=== PATIENT | female | born 1965 | race Caucasian/White ===

== ENCOUNTER 2016-05-27 03:05 | Emergency (ER) | payer SELFPAY ==
[~2016-05-27] VITALS: Ht 162.5 cm; Wt 63.5 kg
[~2016-05-27 03:05] MED LIST: ACE INH; ATIVAN1 MG PO; AVPAK AZITHROM250 M1 PO; BENADRYL ALLERG25 M5 PO; CIPRO500 MG PO; CLARITIN-D 10 M1 T21 PO; CLEOCIN150 MG PO; CLINDAMYCIN HC300 MG PO; CLINDAMYCIN150 MG PO; CORDROL20 MG PO; CYCLOBENZAPRINE10 MG PO; CYCLOBENZAPRINE5 MG PO; DIFLUCAN150 MG PO; DOXYCYCLINE100 M3 PO; DUONEB 3 MG/3 ML3 M1 INH; EES400 MG PO; ERYTHROMYCIN; FLEXERIL10 MG PO; GABAPENTIN600 MG PO; HYDROCODONE BIT1 T11 PO; HYDROXYZINE HCL25 M1 PO; IBU800 M1 PO; KROGER NIC21 MG/24 H TD; L-LYSINE500 MG PO; LOMOTIL 0.025 M1 TA1 PO; LORAZEPAM1 MG PO; MEDROL DOSEPAK4 MG PO; MEDROL4 MG PO; MOTRIN800 MG PO; NAPROSYN500 MG PO; NAPROXEN; NATURE'S BLEND400 I1 PO; NEURONTIN300 MG PO; NO DAILY MEDS; NORCO 325 MG-51 TAB PO; NORFLEX100 MG PO; PEPCID20 MG PO; PERCOCET 325 MG1 TA6 PO; PHENERGAN W/ DE30 ML PO; PREDNICOT10 MG PO; PREDNICOT20 MG PO; PREDNISONE10 MG PO; PREDNISONE20 M1 PO; PROAIR HFA0.09 MG/AC IH; PROAIR HFA0.09 MG/AC INH; PROAIR HFA8.5 GM INH; ROBAXIN750 MG PO; SKELAXIN800 MG PO; TRAMADOL HCL50 MG PO; TYLENOL W/CODEI1 TA4 PO; ULTRAM50 MG PO; VIBRAMYCIN100 MG PO; VICODIN 5/500 505 M1; VICODIN 5/500 505 MG PO; VICODIN 500 MG-1 TAB PO; VICODIN ES 7501 TAB PO; VISTARIL50 MG PO; VOLTAREN50 M1 PO; ZITHROMAX Z PA250 MG PO; ZOFRAN ODT4 MG SL; ZOVIRAX800 MG PO; [UNRECOGNIZED DRUG - OTHER] INH; [UNRECOGNIZED DRUG - OTHER] PO; [UNRECOGNIZED DRUG - OTHER] T
[2016-05-27] MEDS ORDERED: CLINDAMYCIN150 MG PO (03:33)
[2016-05-27] MEDS ORDERED: ATIVAN1 MG PO (03:33)
[2016-05-27] MEDS ORDERED: ULTRAM50 MG PO (03:33)
[2016-06-22] MEDS ORDERED: CLINDAMYCIN HC300 MG PO (14:36)
[2016-06-22] MEDS ORDERED: ATIVAN1 MG PO (14:36)
== END 2016-05-27 03:52 | disposition home or self-care (01) ==
LOC: ED 03:05
DX: T20.45XA Corrosion of unspecified degree of scalp [any part], initial encounter (principal); F41.9 Anxiety disorder, unspecified; F17.200 Nicotine dependence, unspecified, uncomplicated; Z88.0 Allergy status to penicillin; Z88.2 Allergy status to sulfonamides; Z91.040 Latex allergy status; X08.8XXA Exposure to other specified smoke, fire and flames, initial encounter; Y93.89 Activity, other specified; Y92.9 Unspecified place or not applicable; Y99.9 Unspecified external cause status

== ENCOUNTER 2016-08-16 14:33 | Emergency (ER) | payer MEDICAID ==
[~2016-08-16] VITALS: Wt 70.3 kg
[2016-08-16] MEDS ORDERED: HYDROCODONE BIT1 T11 PO (15:35)
[2016-08-16] MEDS ORDERED: CLINDAMYCIN HC300 MG PO (15:35)
== END 2016-08-16 15:39 | disposition home or self-care (01) ==
LOC: ED 14:33
DX: L02.811 Cutaneous abscess of head [any part, except face] (principal); F17.200 Nicotine dependence, unspecified, uncomplicated; Z88.0 Allergy status to penicillin; Z88.2 Allergy status to sulfonamides; Z91.040 Latex allergy status; Z79.899 Other long term (current) drug therapy

== ENCOUNTER 2016-09-12 22:21 | Emergency (ER) | payer OTHER ==
[~2016-09-12] VITALS: Ht 162.5 cm; Wt 59.0 kg
[2016-09-12] MEDS ORDERED: CETIRIZINE10 MG PO (22:36)
[2016-09-12] MEDS ORDERED: VALIUM2 MG PO (22:36)
[2016-09-12] MEDS ORDERED: CLINDAMYCIN HC300 MG PO (22:52)
== END 2016-09-12 22:52 | disposition home or self-care (01) ==
LOC: ED 22:21
DX: L23.4 Allergic contact dermatitis due to dyes (principal); F17.200 Nicotine dependence, unspecified, uncomplicated; Z88.0 Allergy status to penicillin; Z88.2 Allergy status to sulfonamides; Z91.040 Latex allergy status

== ENCOUNTER 2016-09-18 20:41 | Emergency (ER) | payer OTHER ==
[~2016-09-18] VITALS: Ht 162.5 cm; Wt 63.0 kg
[~2016-09-18 20:41] MED LIST changes: +CETIRIZINE10 MG PO; +VALIUM2 MG PO
[2016-09-18] MEDS ORDERED: LORAZEPAM1 MG PO (20:52)
[2016-09-18] MEDS ORDERED: PREDNISONE50 MG PO (21:23)
== END 2016-09-18 21:31 | disposition home or self-care (01) ==
LOC: ED 20:41
DX: L20.9 Atopic dermatitis, unspecified (principal); F41.9 Anxiety disorder, unspecified; F17.200 Nicotine dependence, unspecified, uncomplicated; Z88.0 Allergy status to penicillin; Z88.2 Allergy status to sulfonamides; Z91.040 Latex allergy status; Z79.899 Other long term (current) drug therapy

== ENCOUNTER 2016-09-28 21:15 | Emergency (ER) | payer SELFPAY ==
[~2016-09-28] VITALS: Ht 162.5 cm; Wt 72.1 kg
[~2016-09-28 21:15] MED LIST changes: +PREDNISONE50 MG PO
[2016-09-28] MEDS ORDERED: BENADRYL ALLERG25 M5 PO (21:30)
[2016-09-28] MEDS ORDERED: TAGAMET HB200 M1 PO ×2 (21:59→22:00)
[2016-09-28] MEDS ORDERED: TRIAMCINOLONE AC0.1% T (22:00)
== END 2016-09-28 22:01 | disposition home or self-care (01) ==
LOC: ED 21:15
DX: L23.7 Allergic contact dermatitis due to plants, except food (principal); F17.200 Nicotine dependence, unspecified, uncomplicated; Z88.0 Allergy status to penicillin; Z88.2 Allergy status to sulfonamides; Z91.040 Latex allergy status

== ENCOUNTER 2016-10-12 13:58 | Emergency (ER) | payer SELFPAY ==
[~2016-10-12] VITALS: Ht 162.5 cm; Wt 63.0 kg
[~2016-10-12 13:58] MED LIST changes: +TAGAMET HB200 M1 PO; +TRIAMCINOLONE AC0.1% T
[2016-10-12] MEDS ORDERED: DUONEB 3 MG/3 ML3 M1 INH (16:33)
[2016-10-12] MEDS ORDERED: PREDNISONE20 M1 PO (16:33)
[2016-10-12] MEDS ORDERED: VIBRAMYCIN100 MG PO (16:33)
== END 2016-10-12 16:54 | disposition home or self-care (01) ==
LOC: ED 13:58
DX: J44.1 Chronic obstructive pulmonary disease with (acute) exacerbation (principal); F17.200 Nicotine dependence, unspecified, uncomplicated; Z88.0 Allergy status to penicillin; Z88.2 Allergy status to sulfonamides; Z91.040 Latex allergy status; Z79.899 Other long term (current) drug therapy

== ENCOUNTER 2016-11-05 21:07 | Emergency (ER) | payer OTHER ==
[~2016-11-05] VITALS: Ht 162.5 cm; Wt 68.0 kg
[2016-11-05] MEDS ORDERED: VIBRAMYCIN100 MG PO (21:57)
[2016-11-05] MEDS ORDERED: NAPROSYN500 MG PO (21:58)
== END 2016-11-05 22:41 | disposition home or self-care (01) ==
LOC: ED 21:07
DX: L03.114 Cellulitis of left upper limb (principal); J44.9 Chronic obstructive pulmonary disease, unspecified; G89.29 Other chronic pain; M54.5 Low back pain; F17.200 Nicotine dependence, unspecified, uncomplicated; Z98.51 Tubal ligation status; Z79.899 Other long term (current) drug therapy; Z88.0 Allergy status to penicillin; Z88.2 Allergy status to sulfonamides; Z91.040 Latex allergy status

== ENCOUNTER 2016-12-10 11:48 | Emergency (ER) | payer OTHER ==
[~2016-12-10] VITALS: Wt 63.5 kg
[2016-12-10] MEDS ORDERED: LORAZEPAM1 MG PO (11:52)
[2016-12-10] MEDS ORDERED: PROVENTIL0.09 MG/A1 INH (14:46)
[2016-12-10] MEDS ORDERED: VIBRAMYCIN100 MG PO (14:46)
[2016-12-10] MEDS ORDERED: DUONEB 3 MG/3 ML3 M1 INH (14:46)
[2016-12-10] MEDS ORDERED: NAPROSYN500 MG PO (14:55)
== END 2016-12-10 14:50 | disposition home or self-care (01) ==
LOC: ED 11:48
DX: J45.901 Unspecified asthma with (acute) exacerbation (principal); L02.416 Cutaneous abscess of left lower limb; J44.9 Chronic obstructive pulmonary disease, unspecified; F17.210 Nicotine dependence, cigarettes, uncomplicated; Z88.0 Allergy status to penicillin; Z88.2 Allergy status to sulfonamides; Z91.040 Latex allergy status; Z79.899 Other long term (current) drug therapy

== ENCOUNTER 2017-01-11 20:07 | Inpatient (IN) | payer OTHER ==
[~2017-01-11] VITALS: Ht 162.5 cm; Wt 64.7 kg
[2017-01-11 20:07] VITALS: BP 150/80
[~2017-01-11 20:07] MED LIST changes: +PROVENTIL0.09 MG/A1 INH
[2017-01-11 20:43] LABS: BASO # 0.1 10*3/uL (0.0-0.1); BASO % 0.7 % (0.0-1.0); EOS # 0.4 10*3/uL (0.0-0.4); EOS % 4.6 % (1.0-4.0); HEMATOCRIT 45.9 % (37.0-47.0); LYMPH # 1.5 10*3/uL (1.3-4.4); LYMPH % 18.6 % (27.0-41.0); MEAN CELL VOLUME 89.8 fl (81.0-99.0); MEAN CORPUSCULAR HGB 29.4 pg (27.0-31.0); MEAN CORPUSCULAR HGB CONC 32.7 g/dl (33.0-37.0); MEAN PLATELET VOLUME 10.4 fl (9.6-12.3); MONO % 12.8 % (3.0-9.0); NEUT # 5.1 10*3/uL (2.3-7.9); NEUT % 63.2 % (47.0-73.0); PLATELET COUNT AUTOMATED 246 10*3/uL (130-400); RED BLOOD COUNT 5.11 10*6/uL (4.10-5.10); RED CELL DISTRI WIDTH 14.6 % (0-14.5)
[2017-01-11 21:01] LABS: ALBUMIN 3.6 gm/dl (3.1-4.5); ALKALINE PHOSPHATASE 94 U/L (45-117); BUN 9 mg/dl (7-24); CHLORIDE 106 mmol/L (98-107); MAGNESIUM 2.1 mg/dL (1.5-2.1); POTASSIUM 4.1 mmol/L (3.5-5.1); SGOT/AST 20 IU/L (3-35); SGPT/ALT 19 U/L (12-78); SODIUM 140 mmol/L (136-145); TOTAL PROTEIN 7.3 gm/dL (6.4-8.2)
[2017-01-11 21:04] VITALS: BP 139/88
[2017-01-11 21:04] LABS: TROPONIN I < 0.015 ng/ml (<0.045)
[2017-01-11 22:32] VITALS: BP 114/66
[2017-01-11 23:00] VITALS: BP 115/65
--- NOTE | 2017-01-11 23:00 | NUR ---
A 51, admitted to 4E, under the services of ISABELLA Naranjo DO with a diagnosis of COPD EXACERBATION. Chief complaint is SHORTNESS OF BREATH. Patient arrived via bed from ER. Monitor applied. Initial assessment completed. Vital signs taken and recorded. ISABELLA NARANJO DO notified of admission to the unit. Orders received. See assessment for past medical history, medications and allergies. Patient and/or family oriented to unit. visitation policy reviewed. Clothing/patient valuable form completed. CATE LOPEZ
[2017-01-11] MEDS ORDERED: MOTRIN 600 MG E4 TAB PO (23:35)
[2017-01-12] VITALS: BP 115/65
--- NOTE | 2017-01-12 | NUR ---
HOME MEDS VERIFIED WITH PATIENT AND UPDATED. DR. COLLINS NOTIFIED.
--- NOTE | 2017-01-12 02:36 | NUR ---
PATIENT MEDICATED WITH ATIVAN AT 0021 FOR COMPLAINTS OF ANXIETY WITH EFFECTIVE RESULTS NOTED. RESTING IN BED WITH EYES CLOSED AT THIS TIME. NO SIGNS OR SYMPTOMS OF DISTRESS NOTED. WILL CONTINUE TO MONITOR. CALL LIGHT IN REACH.
--- NOTE | 2017-01-12 04:47 | NUR ---
PATIENT MEDICATED WITH TYLENOL AT 0408 FOR COMPLAINTS OF A HEADACHE WITH INEFFECTIVE RESULTS. PATIENT STILL HAS HEADACHE SHE THINKS IS FROM COUGHING. WILL CONTINUE TO MONITOR. CALL LIGHT IN REACH.
[2017-01-12 06:58] LABS: BASO % 0.2 % (0.0-1.0); HEMATOCRIT 42.1 % (37.0-47.0); HEMOGLOBIN 13.5 g/dl (12.0-16.0); LYMPH # 0.6 10*3/uL (1.3-4.4); LYMPH % 9.6 % (27.0-41.0); MEAN CELL VOLUME 92.1 fl (81.0-99.0); MEAN CORPUSCULAR HGB 29.5 pg (27.0-31.0); MEAN CORPUSCULAR HGB CONC 32.1 g/dl (33.0-37.0); MEAN PLATELET VOLUME 10.5 fl (9.6-12.3); MONO # 0.1 10*3/uL (0.1-1.0); NEUT # 5.4 10*3/uL (2.3-7.9); NEUT % 87.9 % (47.0-73.0); PLATELET COUNT AUTOMATED 227 10*3/uL (130-400); RED BLOOD COUNT 4.57 10*6/uL (4.10-5.10); RED CELL DISTRI WIDTH 14.6 % (0-14.5); WHITE BLOOD COUNT 6.1 10*3/uL (4.8-10.8)
[2017-01-12 07:36] LABS: ALBUMIN 3.1 gm/dl (3.1-4.5); ALKALINE PHOSPHATASE 86 U/L (45-117); BUN 8 mg/dl (7-24); CHLORIDE 110 mmol/L (98-107); CREATININE 0.62 mg/dL (0.55-1.02); POTASSIUM 4.1 mmol/L (3.5-5.1); SGOT/AST 24 IU/L (3-35); SGPT/ALT 24 U/L (12-78); SODIUM 142 mmol/L (136-145); TOTAL PROTEIN 6.7 gm/dL (6.4-8.2)
[2017-01-12 08:00] VITALS: BP 118/60
--- NOTE | 2017-01-12 09:00 | NUR ---
Outboard Technician in to talk to patient. Patient states lives at home with alone. There are few steps in the home. Physician: marysol sheikh [facility]acy: [facility] Home health services: none Patient's level of ADLs: INDEPENDENT Patient has working utilities: all working DME: nebulizer that belongs to grandson Follow-up physician's appointment after d/c: will be made by hospitalist nurse director upon discharge Does patient want to access PORTAL?: no Discharge plan discussed with patient, patient lives at home alone, she is independent in adls and ambulation, she works and drives, she has a nebulizer that belongs to her grandson, none of her own, patient states she will be going home and denies any home need. ESTEPHANIA ANGEL
--- NOTE | 2017-01-12 09:17 | NUR ---
PRN PAIN MED GIVEN FOR 8/10 HEADACHE.
--- NOTE | 2017-01-12 10:17 | NUR ---
PRN PAIN MED NOT EFFECTIVE, REFER TO MAR.
--- NOTE | 2017-01-12 10:42 | NUR ---
PRN PAIN MED GIVEN FOR 8/10 HEADACHE PAIN.
--- NOTE | 2017-01-12 11:42 | NUR ---
PRN PAIN MED NOT EFFECTIVE, REFER TO MAR.
[2017-01-12 12:00] VITALS: BP 115/65
--- NOTE | 2017-01-12 12:21 | NUR ---
PRN MED GIVEN FOR 8/10 HEADACHE.
--- NOTE | 2017-01-12 14:10 | NUR ---
PRN PAIN MED GIVEN FOR M8/10 HEADACHE PAIN.
--- NOTE | 2017-01-12 15:10 | NUR ---
PRN PAIN MED OFFERING SOME RELIEF, PT REPORTS PAIN 7/10. COMFORT MEASURES CONTINUED.
[2017-01-12 16:00] VITALS: BP 137/94
--- NOTE | 2017-01-12 16:45 | NUR ---
PRN PAIN MED GIVEN FOR 7/10 HEADACHE.
[2017-01-12 20:00] VITALS: BP 126/67
--- NOTE | 2017-01-12 22:13 | NUR ---
PAIN MEDICATION GIVEN FOR HEADACHE PER PATIENT REQUEST PER ORDER.
--- NOTE | 2017-01-12 23:30 | NUR ---
PAIN MEDICATION WAS EFFECTIVE PER PATIENT.
[2017-01-13] VITALS: BP 126/77
[2017-01-13 04:00] VITALS: BP 126/78
--- NOTE | 2017-01-13 04:35 | NUR ---
PAIN MEDICATION REQUESTED PER PATIENT FOR HEADACHE. PAIN MEDICATION GIVEN PER ORDER.
--- NOTE | 2017-01-13 05:20 | NUR ---
PAIN MEDICATION GIVEN REQUESTED BY PATIENT FOR HEADACHE. PAIN SUBSIDED.
[2017-01-13 07:19] LABS: BASO % 0.1 % (0.0-1.0); HEMATOCRIT 38.9 % (37.0-47.0); HEMOGLOBIN 12.3 g/dl (12.0-16.0); LYMPH # 1.1 10*3/uL (1.3-4.4); LYMPH % 8.2 % (27.0-41.0); MEAN CELL VOLUME 94.9 fl (81.0-99.0); MEAN CORPUSCULAR HGB CONC 31.6 g/dl (33.0-37.0); MEAN PLATELET VOLUME 10.8 fl (9.6-12.3); MONO # 0.5 10*3/uL (0.1-1.0); MONO % 3.5 % (3.0-9.0); NEUT # 11.9 10*3/uL (2.3-7.9); NEUT % 87.7 % (47.0-73.0); PLATELET COUNT AUTOMATED 224 10*3/uL (130-400); RED CELL DISTRI WIDTH 14.8 % (0-14.5); WHITE BLOOD COUNT 13.5 10*3/uL (4.8-10.8)
[2017-01-13 07:43] LABS: BUN 10 mg/dl (7-24); CHLORIDE 110 mmol/L (98-107); CREATININE 0.64 mg/dL (0.55-1.02); POTASSIUM 3.8 mmol/L (3.5-5.1); SODIUM 145 mmol/L (136-145)
[2017-01-13 08:00] VITALS: BP 112/60
--- NOTE | 2017-01-13 09:00 | NUR ---
case management visits with patient, patient denies any home needs
--- NOTE | 2017-01-13 09:28 | NUR ---
PRN PAIN MED GIVEN FOR 6/10 HEADACHE PAIN.
--- NOTE | 2017-01-13 10:28 | NUR ---
PRN PAIN MED EFFECTIVE, PT REPORTS 0/10 PAIN.
[2017-01-13 12:00] VITALS: BP 128/65
[2017-01-13 16:00] VITALS: BP 118/79
--- NOTE | 2017-01-13 16:55 | NUR ---
PRN PAIN MED GIVEN FOR 6/10 HEADACHE.
--- NOTE | 2017-01-13 17:55 | NUR ---
PRN PAIN MED EFFECTIVE FOR HEADACHE, PT REPORTS 2/10 PAIN.
--- NOTE | 2017-01-13 19:27 | NUR ---
CHART CHECK COMPLETED.
--- NOTE | 2017-01-13 19:48 | NUR ---
PT SITTING ON EDGE OF BED...TALKING ON TELEPHONE. NO ACUTE DISTRESS NOTED.
[2017-01-13 20:00] VITALS: BP 131/96
--- NOTE | 2017-01-13 23:10 | NUR ---
NEW IV STARTED RT FOREARM PER POLICY.
[2017-01-14] VITALS: BP 148/85
--- NOTE | 2017-01-14 01:32 | NUR ---
NORCO GIVEN AT 0010 EFFECTIVE FOR DISCOMFORT OF RECURRING HEADACHE.
--- NOTE | 2017-01-14 06:29 | NUR ---
PT STATES NORCO GIVEN AT 0550 FOR RECURRING HEADACHE EFFECTIVE.
[2017-01-14 06:45] LABS: BASO % 0.1 % (0.0-1.0); HEMATOCRIT 41.2 % (37.0-47.0); LYMPH # 1.4 10*3/uL (1.3-4.4); MEAN CELL VOLUME 93.2 fl (81.0-99.0); MEAN CORPUSCULAR HGB 29.4 pg (27.0-31.0); MEAN CORPUSCULAR HGB CONC 31.6 g/dl (33.0-37.0); MEAN PLATELET VOLUME 10.9 fl (9.6-12.3); MONO # 0.5 10*3/uL (0.1-1.0); NEUT # 14.9 10*3/uL (2.3-7.9); PLATELET COUNT AUTOMATED 239 10*3/uL (130-400); RED BLOOD COUNT 4.42 10*6/uL (4.10-5.10); RED CELL DISTRI WIDTH 14.9 % (0-14.5); WHITE BLOOD COUNT 16.9 10*3/uL (4.8-10.8)
[2017-01-14 07:06] LABS: CHLORIDE 107 mmol/L (98-107); CREATININE 0.69 mg/dL (0.55-1.02); POTASSIUM 4.1 mmol/L (3.5-5.1); SODIUM 140 mmol/L (136-145)
[2017-01-14 07:16] LABS: BUN 22 mg/dl (7-24)
[2017-01-14 08:07] VITALS: BP 140/90
--- NOTE | 2017-01-14 08:12 | NUR ---
HOME MEDS REVIEWED
[2017-01-14 12:00] VITALS: BP 125/88
--- NOTE | 2017-01-14 12:43 | NUR ---
This nurse was asked to evaluate patient for abscess. This nurse eval patient as she was lying in bed. Patient stated that she is already following a physician at the clinic in [facility] and she believes the doctors name is Dr. Estevez which is a female. She has a follow up appointment on the this wednesday. She stated that she was put on doxcycline and she has a history of these areas. She stated that she has came to the ER before for what she thought was a spider bite and Dr. Krueger stated to her that it was a staph infections per the patient. 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 Patient stated that she started with 6 areas to the right armpit. She has 4 small pink raised area noted to right arm pit. Not painful to touch. No drainage noted. Patient stated she has 2 areas to the left arm pit. Upon eval she only has one small pink raised area noted. No drainage noted. Patient stated she will follow up with derm in March.
--- NOTE | 2017-01-14 14:39 | NUR ---
LINA FGIVEN FOR C/O PAIN WITH COUGH. WILL MONITOR.
[2017-01-14 16:00] VITALS: BP 121/72
--- NOTE | 2017-01-14 18:30 | NUR ---
NORCO GIVEN FOR C/O HEADACHE. WILL MONITOR.
--- NOTE | 2017-01-14 19:50 | NUR ---
SITTING UP, WATCHING TV AND TALKING WITH STAFF. NO COMPLAINTS AT THIS TIME. NORCO WAS EFFECTIVE FOR HEADACHE.
[2017-01-14 20:00] VITALS: BP 117/66
--- NOTE | 2017-01-14 20:52 | NUR ---
AMBULATING INTO LOBBY....STEADY GAIT...TOLERATING WELL.
--- NOTE | 2017-01-14 23:10 | NUR ---
SALINE NASAL SPRAY GIVEN FOR PT C/O DRY NASAL PASSAGES.
--- NOTE | 2017-01-14 23:47 | NUR ---
NORCO GIVEN ORDERED FOR PAIN.
[2017-01-15] VITALS: BP 117/68
--- NOTE | 2017-01-15 00:51 | NUR ---
PT. SLEEPING, NORCO EFFECTIVE.
--- NOTE | 2017-01-15 04:28 | NUR ---
NORCO GIVEN ORDERED FOR COMPLAINTS OF HEADACHE.
--- NOTE | 2017-01-15 05:45 | NUR ---
PT. SLEEPING, NORCO EFFECTIVE.
[2017-01-15 06:56] LABS: BASO % 0.1 % (0.0-1.0); HEMATOCRIT 38.9 % (37.0-47.0); HEMOGLOBIN 12.5 g/dl (12.0-16.0); LYMPH # 1.1 10*3/uL (1.3-4.4); LYMPH % 9.1 % (27.0-41.0); MEAN CELL VOLUME 93.1 fl (81.0-99.0); MEAN CORPUSCULAR HGB 29.9 pg (27.0-31.0); MEAN CORPUSCULAR HGB CONC 32.1 g/dl (33.0-37.0); MONO # 0.3 10*3/uL (0.1-1.0); MONO % 2.4 % (3.0-9.0); NEUT # 10.8 10*3/uL (2.3-7.9); NEUT % 87.2 % (47.0-73.0); PLATELET COUNT AUTOMATED 233 10*3/uL (130-400); RED BLOOD COUNT 4.18 10*6/uL (4.10-5.10); WHITE BLOOD COUNT 12.4 10*3/uL (4.8-10.8)
[2017-01-15 07:21] LABS: BUN 24 mg/dl (7-24); CHLORIDE 107 mmol/L (98-107); POTASSIUM 3.9 mmol/L (3.5-5.1); SODIUM 144 mmol/L (136-145)
[2017-01-15 08:00] VITALS: BP 128/78
--- NOTE | 2017-01-15 11:15 | NUR ---
HYCODONE FOR 6 HEADACHE
[2017-01-15 16:00] VITALS: BP 126/78
--- NOTE | 2017-01-15 16:45 | NUR ---
SPO2 ON RA AT REST...92% HR 94 WITH AMBULATION 1 MIN...SPO2 88% RA HR 97 WITH AMBULATION 2 MIN...SPO2 90% 2LNC HR 95 WITH AMBULATION 3 MIN...SPO2 92% 2LNC HR 97 WITH AMBULATION 4 MIN...SPO2 92% 2LNC HR 96 WITH AMBULATION 5 MIN....SPO2 90% 2LNC HR 97 WITH AMBULATION 6 MIN....SPO2 91% 2LNC HR 96 PT TOLERATED 6 MIN WALK BLOOD PRESUURE BEFORE AMBULATION 135/73 BLOOD PRESSURE AFTER AMBULATOIN 132/77
--- NOTE | 2017-01-15 18:21 | NUR ---
PAIN PILL FOR HEADACHE
--- NOTE | 2017-01-15 23:46 | NUR ---
PATIENT GIVEN NORCO FOR COMPLAINTS OF HEADACHE 5.
[2017-01-16] VITALS: BP 126/85
[2017-01-16 06:40] LABS: HEMOGLOBIN 13.2 g/dl (12.0-16.0); MEAN CELL VOLUME 90.3 fl (81.0-99.0); MEAN CORPUSCULAR HGB 29.1 pg (27.0-31.0); MEAN CORPUSCULAR HGB CONC 32.2 g/dl (33.0-37.0); MEAN PLATELET VOLUME 10.9 fl (9.6-12.3); NUCLEATED RED BLOOD CELL 0.1 10*3/uL (0.0-0.0); NUCLEATED RED BLOOD CELL 0.4 % (0.0-0.0); PLATELET COUNT AUTOMATED 238 10*3/uL (130-400); RED BLOOD COUNT 4.54 10*6/uL (4.10-5.10); RED CELL DISTRI WIDTH 14.9 % (0-14.5); WHITE BLOOD COUNT 14.2 10*3/uL (4.8-10.8)
[2017-01-16 07:08] LABS: BUN 21 mg/dl (7-24); CHLORIDE 106 mmol/L (98-107); CREATININE 0.65 mg/dL (0.55-1.02); POTASSIUM 3.7 mmol/L (3.5-5.1); SODIUM 142 mmol/L (136-145)
[2017-01-16 07:30] LABS: PLATELET SUFFICIENCY NORMAL (NORMAL); TOTAL CELLS COUNTED 100 #CELLS
--- NOTE | 2017-01-16 07:30 | NUR ---
ASSUMED CARE OF PT AT THIS TIME, PT SITTING UPRIGHT IN BED EATING BREAKFAST NO S/S OF DISTRESS AT THIS TIME
[2017-01-16 08:00] VITALS: BP 132/80
--- NOTE | 2017-01-16 09:39 | NUR ---
NORCO GIVEN FOR C/O HEADACHE. WILL MONITOR,.
--- NOTE | 2017-01-16 10:39 | NUR ---
PT RESTINING IN BED WATCHING TV, NO FURTHER C/O H/A, PRN NORCO EFFECTIVE AT THIS TIME
--- NOTE | 2017-01-16 14:01 | NUR ---
PT C/OH/A REQUESTING PRN PAIN MEDICATION, ADMINISTERED NORCO PO PRN PER ORDERS, WILL MONITOR EFFECTS
--- NOTE | 2017-01-16 15:00 | NUR ---
PT HAS NO FURTHER C/O H/A, REPORTS THAT PO PRN PAIN MEDICATION IS EFFECTIVE, NO FURTHER C/O PAIN.
--- NOTE | 2017-01-16 15:19 | NUR ---
PT SITTING UPRIGHT IN BED, RESPS EASY AND NONLABORED WITH NO S/S OF DISTRESS. VISITING WITH PT, CALL LIGHT WITH IN REACH
[2017-01-16 16:00] VITALS: BP 136/76
--- NOTE | 2017-01-16 19:50 | NUR ---
MEDICATED WITH PRN NORCO FOR C/O HEADACHE. RATES 11/30. WILL MONITOR FOR EFFECTIVENESS.
[2017-01-16 20:00] VITALS: BP 136/78
--- NOTE | 2017-01-16 20:00 | NUR ---
ASSUMED CARE OF PATIENT. ASSESSMENT COMPLETE. RESTING IN BED. CALL LIGHT IN REACH. WILL CONTINUE TO MONITOR.
--- NOTE | 2017-01-16 21:25 | NUR ---
DAILY MED REC REVIEWED WITH PATIENT.
--- NOTE | 2017-01-16 21:28 | NUR ---
PT STATES EARLIER NORCO EFFECTIVE FOR PAIN RELIEF
--- NOTE | 2017-01-16 23:56 | NUR ---
PT C/O HEADACHE 11/30. MEDICATED WITH PRN NORCO PER JUL. WILL MONITOR FOR EFFECTIVENESS.
[2017-01-17] VITALS: BP 140/80
--- NOTE | 2017-01-17 01:30 | NUR ---
EARLIER NORCO APPEARS TO BE EFFECTIVE. PT SLEEPING.
--- NOTE | 2017-01-17 03:26 | NUR ---
SLEEPING. RESP EASY AND NONLABORED ON ROOM AIR. NO DISTRESS NOTED. CALL LIGHT IN REACH. WILL CONTINUE TO MONITOR.
--- NOTE | 2017-01-17 05:14 | NUR ---
MEDICATED WITH PRN NORCO FOR C/O HEADACHE. RATES 11/30
[2017-01-17 08:00] VITALS: BP 143/84
--- NOTE | 2017-01-17 08:47 | NUR ---
PATIENT C/O HEADACHE. MEDICATED WITH TYLENOL PER PRN ORDER.
[2017-01-17] MEDS ORDERED: BSC DEVI (11:28)
[2017-01-17] MEDS ORDERED: DOXYCYCLINE100 MG PO (11:28)
[2017-01-17] MEDS ORDERED: PREDNISONE10 MG PO (11:28)
[2017-01-17] MEDS ORDERED: DUONEB 3 MG/3 ML3 M1 INH (11:28)
[2017-01-17] MEDS ORDERED: OXYGEN NAS (11:28)
[2017-01-17] MEDS ORDERED: NEBULIZER DEVI (11:28)
[2017-01-17] MEDS ORDERED: BENZONATATE100 M1 PO (11:28)
--- NOTE | 2017-01-17 11:54 | NUR ---
PATIENT CONTINUES TO C/O HEADACHE. MEDICATED WITH NORCO PER PRN ORDER. WILL CONTINUE TO MONITOR.
[2017-01-17 12:00] VITALS: BP 132/87
[2017-01-17 16:00] VITALS: BP 126/86
--- NOTE | 2017-01-17 16:20 | NUR ---
PATIENT DISCHARGED TO HOME. ALL PERSONAL BELONGINGS SENT WITH PATIENT. IV DISCONTINUED. DISCHARGE INSTRUCTIONS AND PRESCRIPTIONS WERE GIVEN AND REVIEWED WITH PATIENT. [employer] DELIVERED PORTABLE OXYGEN.
== END 2017-01-17 16:20 | disposition home or self-care (01) | DRG 872 ==
LOC: ED 20:07 → 4E 21:54 → EDHOLD 21:54 → 4E 21:59
PROVIDERS: Emergency Medicine Emergency Medical Services; Family Medicine; Student in an Organized Health Care Education/Training Program; ADMIT Internal Medicine
DX: A41.9 Sepsis, unspecified organism (principal); Z99.81 Dependence on supplemental oxygen; E44.0 Moderate protein-calorie malnutrition; J44.1 Chronic obstructive pulmonary disease with (acute) exacerbation; L08.9 Local infection of the skin and subcutaneous tissue, unspecified; B95.8 Unspecified staphylococcus as the cause of diseases classified elsewhere; F17.200 Nicotine dependence, unspecified, uncomplicated; Z71.6 Tobacco abuse counseling; Z82.5 Family history of asthma and other chronic lower respiratory diseases; Z88.0 Allergy status to penicillin; Z88.2 Allergy status to sulfonamides; Z91.040 Latex allergy status; Z68.24 Body mass index [BMI] 24.0-24.9, adult; Z79.51 Long term (current) use of inhaled steroids; Z79.2 Long term (current) use of antibiotics; Z79.899 Other long term (current) drug therapy

== ENCOUNTER 2017-07-07 03:18 | Emergency (ER) | payer SELFPAY ==
[~2017-07-07] VITALS: Ht 162.5 cm; Wt 72.6 kg
[~2017-07-07 03:18] MED LIST changes: +BENZONATATE100 M1 PO; +BSC DEVI; +DOXYCYCLINE100 MG PO; +MOTRIN 600 MG E4 TAB PO; +NEBULIZER DEVI; +OXYGEN NAS
[2017-07-07 03:43] LABS: BASO # 0.1 10*3/uL (0.0-0.1); BASO % 0.7 % (0.0-1.0); EOS # 0.8 10*3/uL (0.0-0.4); EOS % 5.6 % (1.0-4.0); HEMATOCRIT 45.3 % (37.0-47.0); HEMOGLOBIN 14.6 g/dl (12.0-16.0); LYMPH # 2.8 10*3/uL (1.3-4.4); LYMPH % 21.2 % (27.0-41.0); MEAN CELL VOLUME 89.3 fl (81.0-99.0); MEAN CORPUSCULAR HGB 28.8 pg (27.0-31.0); MEAN CORPUSCULAR HGB CONC 32.2 g/dl (33.0-37.0); MONO # 0.9 10*3/uL (0.1-1.0); NEUT # 8.7 10*3/uL (2.3-7.9); NEUT % 64.8 % (47.0-73.0); PLATELET COUNT AUTOMATED 245 10*3/uL (130-400); RED BLOOD COUNT 5.07 10*6/uL (4.10-5.10); RED CELL DISTRI WIDTH 15.2 % (0-14.5); WHITE BLOOD COUNT 13.4 10*3/uL (4.8-10.8)
[2017-07-07 03:53] LABS: ACT PARTIAL THROMBO TIME 24.6 SECONDS (20.8-31.5); INTERNATIONAL NORM RATIO 0.9 (2.0-3.5)
[2017-07-07 04:02] LABS: ALBUMIN 3.2 gm/dl (3.1-4.5); ALKALINE PHOSPHATASE 87 U/L (45-117); BUN 18 mg/dl (7-24); CHLORIDE 106 mmol/L (98-107); CREATININE 0.81 mg/dL (0.55-1.02); SGOT/AST 16 IU/L (3-35); SGPT/ALT 38 U/L (12-78); SODIUM 142 mmol/L (136-145); TOTAL PROTEIN 6.6 gm/dL (6.4-8.2)
[2017-07-07 04:03] LABS: TROPONIN I < 0.015 ng/ml (<0.045)
[2017-07-07] MEDS ORDERED: PREDNISONE50 MG PO (04:31)
[2017-07-07] MEDS ORDERED: LEVAQUIN750 M1 PO (04:31)
== END 2017-07-07 05:13 | disposition home or self-care (01) ==
LOC: ED 03:18
PROVIDERS: Student in an Organized Health Care Education/Training Program
DX: J44.1 Chronic obstructive pulmonary disease with (acute) exacerbation (principal); F17.200 Nicotine dependence, unspecified, uncomplicated; Z98.51 Tubal ligation status; Z79.899 Other long term (current) drug therapy; Z88.0 Allergy status to penicillin; Z88.2 Allergy status to sulfonamides; Z91.040 Latex allergy status

== ENCOUNTER 2017-07-28 15:08 | Emergency (ER) | payer OTHER ==
[~2017-07-28] VITALS: Ht 162.5 cm; Wt 72.6 kg
[~2017-07-28 15:08] MED LIST changes: +LEVAQUIN750 M1 PO
[2017-07-28] MEDS ORDERED: ADDERALL XR20 MG PO (15:18)
[2017-07-28] MEDS ORDERED: PREDNISONE10 MG PO (15:54)
[2017-07-28] MEDS ORDERED: VIBRAMYCIN100 MG PO (15:54)
[2017-07-28] MEDS ORDERED: ALBUTEROL2.5 MG/0.5 INH (15:54)
== END 2017-07-28 17:05 | disposition home or self-care (01) ==
LOC: ED 15:08
DX: J18.9 Pneumonia, unspecified organism (principal); J44.9 Chronic obstructive pulmonary disease, unspecified; F17.200 Nicotine dependence, unspecified, uncomplicated; Z88.0 Allergy status to penicillin; Z88.2 Allergy status to sulfonamides; Z91.040 Latex allergy status; Z79.899 Other long term (current) drug therapy

== ENCOUNTER 2017-08-23 14:41 | Inpatient (IN) | payer OTHER ==
[~2017-08-23] VITALS: Ht 162.5 cm; Wt 72.6 kg
--- NOTE | ~2017-08-23 | CON ---
[place], [place] REPORT OF CONSULTATION NAME: RAFIQ FAJARDO [facility] #: [id number] UNIT #: [id number] ROOM: [facility] DOCTOR: DAVIDE MCCONNELL MD BIRTHDATE: [birth year] DOS: 08/24/2017 PULMONARY CONSULTATION, EVALUATION AND MANAGEMENT CONSULTATION REQUESTED BY: Hospitalist service. REASON FOR CONSULTATION: Acute respiratory failure. The history contained document is actually review with the medical record from office for current hospitalization by the other physician documentation, the patient currently intubated, noted on mechanical ventilation. HISTORY OF PRESENT ILLNESS: A 51-year-old white female who has been admitted to the hospital yesterday admitted on the medical floor. The patient has been noted symptoms of ongoing shortness of breath about a month. Shortness of breath has been noted progressive worsening. The patient has been treated with antibiotics. As the patient was seen in the emergency room about a month ago. She has been also given corticosteroid by the primary care physician. She has been admitted to the hospital because of worsening of the respiratory symptoms, not responding to current treatment with shortness of breath, chest pain, cough. She has been noted extreme anxiety with severe respiratory distress ____ consultation earlier in the morning. The patient had arterial blood gases done. She did not respond to the usual treatment on the floor requiring progressive increased oxygen requirement and admitted to the Intensive Care Unit on my order. The patient was given Haldol 1 dose at 5 mg and also treated with the BiPAP setting of 16/10. The patient did not respond to the treatment was ordered for intubation and mechanical ventilation, status post successful intubated, started on mechanical ventilation early this morning. The patient has been noted at this time sedated with the use of intravenous Diprivan and noted quite comfortable this morning of assessment. REVIEW OF SYSTEMS: The patient could not be performed since the patient was noted intubation and mechanical ventilation. PAST MEDICAL HISTORY: Which has been reported in my office, as the patient was only seen in January of last year as a followup appointment coming up with the diagnosis of bronchial asthma, question of COPD, pulmonary function testing was not done. At the present time chest x-ray showing significant hyperinflation of the lung at the time of the assessment. PAST SURGICAL HISTORY: The patient was reported as no past surgeries. FAMILY HISTORY: Reported as father of complication of COPD, unknown age. Mother at 65 years old, complication of acute myocardial infarction has been known with history of COPD at that time as well. 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 Noted with heavy tobacco use three packs of cigarettes per day from the age of [age] years old. I am not sure the patient is still smoking cigarettes at this time and the quantity at the present time. [place], [place] REPORT OF CONSULTATION NAME: [facility] [id number] UNIT #: [id number] ROOM: [facility] DOCTOR: MIKE SOSA MD,DAVIDE BIRTHDATE: [birth year] HOME MEDICATIONS: Reported from home use of Adderall, Proventil, Flonase, DuoNeb, lorazepam. The patient was prescribed noted Anoro Ellipta inhaler at that time, not sure if she was using that at this time or not. DRUG ALLERGY HISTORY: ALLERGY TO SULFA DRUG, PENICILLINS. PHYSICAL EXAMINATION: GENERAL: This is a 51-year-old female who was currently intubated, noted on mechanical ventilation. Height of 5 feet 4 inches, weight 160 pounds, BMI 27.4. VITAL SIGNS: Which has been recorded shows the temperature patient noted as normal, respiratory rate 19-20, heart rate of 115, sinus tachycardia to 70. The blood pressure [id number] prior to intubation and this morning blood pressure noted at 8 o'clock at 106/61. Intake 1400 mL and 650 mL without De Jesus catheter. Pulse oxygen saturation of the patient on room air 97% with progressive oxygen requirement up to 100% nonrebreather mask 95% later on Venturi mask 89% saturation currently on intubation was noted saturation 98% on 50% oxygen. HEAD, EYES, EARS, NOSE, AND THROAT: Orally intubated at the present time. Head was atraumatic. Eyes nonicterus. NECK: Supple. Orogastric tube is in place. There was no palpable subcutaneous emphysema or any other findings. CARDIOVASCULAR: S1, S2 audible. LUNGS: Diffuse reduction in breath sounds with expiratory wheezing at the present time. There were no crackles heard. ABDOMEN: Soft, nontender. Bowel sounds present. EXTREMITIES: The patient noted without any edema, clubbing, cyanosis or any muscle mass loss. MUSCULOSKELETAL: Without any acute deformities. CENTRAL NERVOUS SYSTEM: At this time, the patient is intubated, mechanical ventilation for the cyst. Assessment could not be performed; however, the patient was not reported any focal neurologic deficit. LABORATORY AND DIAGNOSTIC DATA: CBC yesterday was noted as eosinophil 91% with the remaining CBC normal including WBC count. Lactic acid normal. PT/PTT on 08/23/2017 was noted as normal on admission. CMP yesterday on admission was noted as normal electrolytes. The arterial blood gas that was done yesterday pH of 7.31, pCO2 of 51, pO2 of 91 over a liter nasal cannula. D-dimer was noted as normal. Arterial blood gas, which was done early this morning on the BiPAP with 50% oxygen, pH of 7.25, pCO2 of 57, pO2 of 88. CBC this morning repeated again was noted as normal CBC. The BMP that was done on 08/24/2017 was noted as glucose 151, BUN and creatinine were normal, remaining electrolytes were normal. The chest x-ray that was done, 2-view on admission, on 08/23/2017 was noted as hyperinflation without any acute pulmonary infiltration that was done this morning shows endotracheal tube was noted 6.2 cm above the lidia level. NG tube were noted in the stomach. Hyperinflation lung without visible acute infiltration or atypical consolidation. IMPRESSION: 1. The patient who has been noted with progressive acute hypercapnic and severe hypoxic respiratory failure result of severe exacerbation of bronchial asthma, [place], [place] REPORT OF CONSULTATION NAME: RAFIQ FAJARDO UNIT #: [id number] ROOM: [facility] DOCTOR: MIKE SOSA MD,DAVIDE BIRTHDATE: [birth year] possibly accompanied COPD as well. 2. History of known severe COPD in the past as well. 3. Eosinophilia related with acute exacerbation of bronchial asthma noted. Noted CBC as well. 4. ____ the patient suspected mucous impaction major airways as well. The Gram stain of the endotracheal aspirate shows many white blood cell, few gram-positive cocci in pairs, chains and clusters, few gram-negative bacilli, pending cultures. PLAN OF MANAGEMENT: Continue current high dose of steroids. The arterial blood gas, which has been review this morning after mechanical ventilation shows pH of 7.19, pCO2 of 69, pO2 of 74 with 50% oxygen, tidal volume of 550 mL, rate of 12 with 0 PEEP. The changes were made and arterial blood gases to improve the ventilation reduction of the respiratory rate and the tidal volume that resulted in improvement in the peak air pressures, which are noted about 41-32. The ____ ventilation was also noted improved with that as well. Repeat arterial blood gas will be done 3 hours after the current changes. With the improvement in bronchospasm. The ventilation should improve as well. Nutrition support was started with Pulmocare 20 mL per hour increase 65 mL. Obtain the prealbumin level. The patient the protein-calorie status. The endotracheal tube to proper position needs to be done with advance ET tube x 3.5 cm to keep appropriate level. Consideration for bronchoscopy. Upon stability will be done to clear out the mucus impaction major airways. Other supportive plan of therapy care management plan. Monitor culture results. Continue current antibiotic, community-acquired infection and bronchitis. Usual care. Additional treatment changes to be made based on the progression of the illness. Assess the patient for viral illness with use of nasopharyngeal swab for viral infection including influenza will be ordered as well. Other supportive therapy, plan of management as well. Usual care. Additional changes in the treatment continue be made based on progression of illness. Ventilator bundle management has been started including DVT prophylaxis use of Protonix. Total time pulmonary critical management today was 40 minutes. DAVIDE MCKEON MD CM:CONSTR:REPORT OF CONSULTATION 1307 08/24/172026 interface
--- NOTE | ~2017-08-23 | PR ---
[place], [place] PROGRESS NOTE NAME: RAFIQ FAJARDO [facility] #: [id number] UNIT #: [id number] ROOM: 506 DOCTOR: MIKE SOSA MD,DAVIDE BIRTHDATE: [birth year] DOS: 08/30/2017 SUBJECTIVE: The patient noted comfortable at this time without any acute distress, still noted some edema of the lower extremity, started oral Lasix yesterday. Shortness of breath, he has symptoms including wheezing, was resolving. OBJECTIVE: VITAL SIGNS: Normal temperature, respiratory rate 18, heart rate 98, blood pressure 103/73-101/63. Pulse oxygen saturation on 2 liters nasal cannula 92% saturation. HEENT: No new change. NECK: Supple. CARDIOVASCULAR: S1, S2 audible. LUNGS: Noted without any crackles or question of wheezing. ABDOMEN: Soft, nontender, bowel sounds present. CENTRAL NERVOUS SYSTEM: Nonfocal. IMPRESSION: Stable respiratory status was noted at the present time with the resolving acute respiratory failure with hypoxia and hypercapnia as well as exacerbation of chronic obstructive pulmonary disease. The edema related to corticosteroids. PLAN OF TREATMENT: The patient could be considered home discharge on tapering dose of prednisone, bronchodilators and oral diuretics for a few days. Abstinence of tobacco use was discussed and addressed with the patient. Outpatient followup to be established by the patient in my office in about 2-3 weeks. She does already have an appointment in September 2017 that could be kept. DAVIDE MCKEON MD CM:PNTRANS [id number] DAVIDE SOSA MD 08/30/17 2030 interface
--- NOTE | ~2017-08-23 | PR ---
[place], [place] PROGRESS NOTE NAME: RAFIQ FAJARDO [facility] #: [id number] UNIT #: [id number] ROOM: [facility] DOCTOR: DAVIDE MCCONNELL MD BIRTHDATE: [birth year] DOS: 08/25/2017 SUBJECTIVE: The patient was seen and examined for 08/25/2017. She was continued on mechanical ventilator requiring a heavy amount of sedation for comfort. The patient receiving Diprivan intravenously 50 mcg per kilogram of body weight and also receiving the Versed 5 mg q. 1 hour p.r.n. for the management sedation and agitation. She has been noted excessive cough intermittently while on the mechanical ventilator without any significant secretion, which has been suctioned out by the nursing and respiratory staff. The patient remains on the assist control, volume control, mechanical ventilation changes made yesterday on that. Improvement in the hypercapnia ventilatory status was noted. The patient has been present at bedside with the patient as well this morning of assessment. The patient has not been reported any symptoms of hemodynamic instability. The tachycardia for the patient was noted, which has been noted intermittently with gradual reduction of the tachycardia. The patient was continued on intravenous Solu-Medrol, assist control, volume control, and mechanical ventilation as well with 40% oxygen supplementation. OBJECTIVE: VITAL SIGNS: For the patient which were recorded for the patient shows the review of the patient shows the temperature remains normal. The patient last 24 hours, respiratory rate range between 16-20. Heart rate was noted sinus tachycardia under 15-95 beats per minute, blood pressure ranging between 64-115/81. Intake for the patient were recorded as intake of 3232. CBC of 950, positive 2.2 liters. Pulse oxygen saturation on 40% oxygen was 98% saturation. HEENT: The patient remained orally intubated, orogastric tube remains in place. NECK: Supple. Head was atraumatic. CARDIOVASCULAR: S1, S2 audible. LUNGS: Noted diffuse expiratory wheezing was noted partially decreased from previous examinations. ABDOMEN: Soft, nontender. Bowel sounds are present. EXTREMITIES: The patient was noted without any acute edema, clubbing, cyanosis. MUSCULOSKELETAL: The patient was noted without any acute deformities. Visible skin: was noted without lesions or rashes. CENTRAL NERVOUS SYSTEM: The patient was noted to be in intermittent agitation, but there were no focal neurologic deficits noted. LABORATORY DATA: The arterial blood gas, the patient that was done this morning at 07:25, pH of 7.34, pCO2 of 52, pO2 91 on 35% oxygen. Arterial blood gas that was yesterday afternoon, pH 7.30, pCO2 of 54, pO2 110. Influenza A and B, nasal washing antigens were noted as negative. Culture of the endotracheal aspirate were noted as normal denae. Gram stain of yesterday of the endotracheal aspirate were many white blood cell, few gram-positive cocci in pairs and clusters, few gram-negative bacilli. The CBC for this morning, WBC count 18.9, hemoglobin 12.7, hematocrit 40.8, platelet count 128,000, segmented neutrophils 89%. Urine cultures, no bacterial growth. Blood culture, no bacterial growth for 08/23/2017, 2 sets. BMP this morning, glucose 155, BUN and creatinine was normal. Prealbumin of 19. [place], [place] PROGRESS NOTE NAME: RAFIQ FAJARDO UNIT #: [id number] ROOM: [facility] [birth year] IMPRESSION: 1. The patient with acute respiratory failure, which has been noted with severe acute exacerbation of COPD and eosinophilia. 2. Acute bronchitis. 3. Suspicion of mucus impaction of major airways. 4. Chronic nicotine dependence as well. 5. Agitation. The patient required high amount of oxygen supplementation as high amount of sedation as well. 6. Gonc-kn-jsmtbapw protein calorie malnutrition as well. 7. Sinus tachycardia related to acute exacerbation of bronchial asthma. PLAN OF TREATMENT: The patient will be continued on current dose of Solu-Medrol 60 mg q. 8 hours, DVT prophylaxis, GI prophylaxis, and all other ventilator bundle management. In addition to continuation of the propofol for this patient and Versed combination she has been ordered the Haldol 5 mg to be given now and then 4 hours around the clock for the next 24 hours, then reduction could be started after that. Bronchoscopy was assessed to be done today for the patient to help clear mucus impaction because of severe excessive cough. Continuation of the bronchodilator in the meantime as previously. Usual care. No changes in antibiotic will be necessary with Levaquin. Change in antibiotic will be done for the patient based on the progression of illness. Continue maximizing nutrition status of the patient. The feeding was tolerated which has been gradually increased for the patient. Gradually, to give the patient maximum nutrition support. Nicotine replacement patches could be ordered for this patient as well to overcome any current withdrawal since the patient was noted heavy tobacco use as per , which was gradually resumed for the patient since my last assessment in the office, 01/2018. Chest x-ray will be ordered to assess the patient for development of any area of atelectasis or infiltration. Total time pulmonary critical management for the patient was 38 minutes. DAVIDE MCKEON MD CM:PNTRANS [id number] DAVIDE SOSA MD 08/25/172050 interface
--- NOTE | ~2017-08-23 | PR ---
[place], [place] PROGRESS NOTE NAME: RAFIQ FAJARDO UNIT #: [id number] ROOM: 506 DOCTOR: DAVIDE MCCONNELL MD BIRTHDATE: [birth year] DOS: 08/28/2017 PULMONARY PROGRESS NOTE SUBJECTIVE: The patient noted comfortable at this time without any acute distress. She has not been noted any symptoms of chest pain. Significant reduction in wheezing were noted. The coughing has been noted decreased. The patient remains in Intensive Care Unit. She has used the BiPAP as ordered. This morning, using oxygen supplementation nasal cannula noted very comfortable. She was also started ambulating as a low dose of Risperdal as well. All the remaining systems were reviewed, they were noted all negative. OBJECTIVE: VITAL SIGNS: For the patient which has been recorded showed the temperature noted normal, respirations 20, heart rate 98, blood pressure 150/83 to 134/71. The pulse oxygen saturation of patient 3 liters cannula 93% saturation. HEENT: Examination shows head was atraumatic. Eyes nonicterus. NECK: Supple. CARDIOVASCULAR: S1, S2 is audible. LUNGS: The patient was noted with moderate decreased breath sounds with expiratory wheezing, decreased on previous examination. There were no crackles. ABDOMEN: Soft, flat, nontender. EXTREMITIES: Without any acute edema. Visible skin with no lesions or rashes. MUSCULOSKELETAL: Without any acute deformities. CENTRAL NERVOUS SYSTEM: General weakness, but there were no focal deficits. LABORATORY DATA: CBC today was noted essentially normal CBC. BMP was noted as normal. The chest x-ray was noted without any acute pulmonary abnormalities. IMPRESSION: 1. The patient with resolving progressive respiratory failure as well as acute exacerbation of bronchial asthma. 2. History of chronic nicotine abuse, currently not smoking any cigarettes or debility. 3. General anxiety disorder. PLAN OF TREATMENT: Continue current combination of medications without any change. Rhinovirus was also isolated respiratory viral panel for the patient, which does not require any treatment. Symptomatic management will be continued. Continuation of the previous treatment, plan of management and care. [place], [place] PROGRESS NOTE NAME: RAFIQ FAJARDO UNIT #: [id number] ROOM: 506 DOCTOR: DAVIDE MCCONNELL MD BIRTHDATE: [birth year] DAVIDE MCKEON MD CM:PNTRANS [id number] DAVIDE SOSA MD 08/28/17 1524 interface
--- NOTE | ~2017-08-23 | O ---
[place], [place] OPERATIVE NOTE NAME: RAFIQ FAJARDO UNIT #: [id number] ROOM: [facility] DOCTOR: MOISES MENDEZ MD BIRTHDATE: [birth year] DOS: 08/24/2017 PROCEDURE: Intubation. We were called to the ICU to intubate this patient at the request of Dr. Nance. We got verbal consent from the patient, she was unable to sign the permit. She was given etomidate 16 mg, no muscle relaxants. I intubated her on a single attempt using a Driver blade, using a #7.5 endotracheal tube. The tube was secured at 22 cm. Breath sounds were equal bilaterally. Positive end tidal CO2 and the patient was then placed on a ventilator at the direction of Dr. Nance per his orders. MOISES MENDEZ MD CM:OPRECORD:OPERATIVE NOTE [id number] MOISES MENDEZ MD 08/24/17 0928 interface
--- NOTE | ~2017-08-23 | PR ---
[place], [place] PROGRESS NOTE NAME: RAFIQ FAJARDO [facility] #: [id number] UNIT #: [id number] ROOM: [facility] DOCTOR: MIKE SOSA MD,DAVIDE BIRTHDATE: [birth year] DOS: 08/27/2017 PULMONARY PROGRESS NOTE SUBJECTIVE: She has been sick. She has been liberated from mechanical ventilator yesterday, starting the BiPAP, which has been used by the patient most of the time, still noted significant wheezing. However, she was noted cooperative on examination at the present time. She has been using the BiPAP and able to recognize me this morning. The family members have been present at bedside with the patient. Denies symptoms of hemoptysis, chest pain, sore throat, hematemesis, melena, or dysphagia. The coughing has been noted excessively at times. The remaining systems were reviewed and they were noted negative. PAST MEDICAL HISTORY, SOCIAL, AND FAMILY HISTORY: Remains unchanged except this current history of mechanical ventilation on this admission of operative bronchoscopy. PHYSICAL EXAMINATION: VITAL SIGNS: Vital signs this morning for the patient noted as normal temperature, respiratory rate of 25-17. The heart rate noted mild sinus tachycardia 110 to 92 intermittently. Blood pressure ranging between 134/80-122/76. The intake was noted for this patient as 3200, output was 3200, ____ 140 mL. Pulse oxygen saturation noted with the BiPAP, use of oxygen, and nasal cannula ranges between 100%-95% with oxygen supplementation of 35%-50%. HEENT: Examination shows head was atraumatic. Eyes nonicterus. The patient orally extubated. Orogastric tube has been removed. NECK: Supple. CARDIOVASCULAR: S1, S2 audible. LUNGS: Noted with diffuse expiratory wheezing noted in the lungs increased from yesterday examination while the patient was on the mechanical ventilator. ABDOMEN: Noted soft, nontender. Bowel sounds present. EXTREMITIES: The patient noted without any acute edema. VISIBLE SKIN: No lesions or rashes. MUSCULOSKELETAL SYMPTOMS: The patient without any acute deformities. LABORATORY DATA: The respiratory viral panel was noted positive for rhinovirus, isolated. The BMP of the patient this morning, normal BUN and creatinine and electrolytes were normal. CBC this morning, WBC count 14.2, hemoglobin and hematocrit normal, and platelet count normal. Routine culture of the bronchial washings were noted, no bacterial growth. Chest x-ray that was done this morning, the patient does not show any acute pulmonary infiltration. IMPRESSION: 1. Acute rhinovirus infection resulting in severe acute exacerbation of bronchial asthma, persistent wheezing, acute hypoxic respiratory failure, and hypercapnia. 2. History of heavy nicotine abuse as well. 3. Excessive cough. [place], [place] PROGRESS NOTE NAME: RAFIQ FAJARDO UNIT #: [id number] ROOM: [facility] DOCTOR: MIKE SOSA MD,DAVIDE BIRTHDATE: [birth year] PLAN OF TREATMENT: The patient was started on Robitussin-AC. Continue current dose of steroids. Continue bronchodilators every 4 hours. No changes in the antibiotics at this time would be necessary. Actually, the antibiotics will be discontinued since there has not been any infection noted at this time. Usual care, other supportive therapy, plan of management, and care plan. Additional treatment changes will be made for the patient based on the progression of the illness. Usual care. All other supportive plan of therapy and management and plan of care. DVT prophylaxis will be continued. The patient will benefit from long-term acute care facility. Consultation was required several day for the patient until the resolution of the current acute bronchial asthma occurs. The patient was started on Ativan by the primary care attending, which was discontinued. Short-acting benzodiazepine was ordered. Risperdal low dose 0.25 mg p.o. b.i.d. ordered to keep the patient comfortable as well. No change in dose of corticosteroids. Usual care, the plan of therapy care, plan of management, and treatments. DAVIDE MCKEON MD CM:PNTRANS [id number] DAVIDE SOSA MD 08/28/17 0245 interface
--- NOTE | ~2017-08-23 | EKG ---
[place], [place] ELECTROCARDIOGRAM REPORT NAME: RAFIQ FAJARDO UNIT #: [id number] ROOM: [facility] DOCTOR: MIKE SOSA MD,DAVIDE BIRTHDATE: [birth year] DOS: 08/23/2017 Electrocardiogram done on 08/23/2017 at 3:11 p.m. Normal sinus rhythm noted. Heart rate of 90 beats per minute. Left atrial enlargement was noted. DAVIDE MCKEON MD CM:EKGRPT:ELECTROCARDIOGRAM REPORT [id number] DAVIDE SOSA MD
--- NOTE | ~2017-08-23 | PR ---
[place], [place] PROGRESS NOTE NAME: RAFIQ FAJARDO [facility] #: [id number] UNIT #: [id number] ROOM: [facility] DOCTOR: DAVIDE MCCONNELL MD BIRTHDATE: [birth year] DOS: 08/26/2017 SUBJECTIVE: The patient is seen and examined on 08/26/2017, remains on mechanical ventilator. The bronchoscopy was done. The patient was therapeutic yesterday with large amount of the mucus plugs removed from the endobronchial tree. The patient tolerated the procedure very well without any difficulty. She has not been noted any complication. Otherwise, at this time remains on mechanical ventilator. The patient is doing very well. The oxygen supplementation has been gradually decreased for the patient. She has been noted comfortable at this time with the change of sedation, which were made yesterday. The feeding for the patient was continued from the orogastric tube, which was well tolerated without any acute residuals. The patient was noted with intermittent tachycardia ____ heart rate was noted gradually. PHYSICAL EXAMINATION: VITAL SIGNS: The temperature remains normal. The respiratory rate of 14-20, heart rate of 108-110 and 95 at time, blood pressure 102/59-93/53. Pulse oxygen saturation on 35% oxygen was 98% saturation with assist control, volume control mechanical ventilation. HEENT: The patient remained intubated. Head was atraumatic. Orogastric tube is in place. CARDIOVASCULAR: S1, S2 audible. LUNGS: The patient was noted with moderate decreased breath sounds in the lung with mild expiratory wheezing. ABDOMEN: Soft, flat, nontender. Bowel sounds present. EXTREMITIES: The patient noted without any acute edema with skin lesions or rashes. MUSCULOSKELETAL SYMPTOMS: Without acute deformities with reduction of sedation. The patient was noted awake and follow vocal commands, per nursing staff. LABORATORY DATA: Reviewed for the patient in today's note. The culture of the endotracheal aspirate was noted as normal denae, final results. The Gram stain bronchial washings yesterday of 08/25/2017; many white blood cell, few gram-positive cocci in pairs. Sputum noted normal denae, final culture results remains pending. CBC this morning, WBC 16.1, hemoglobin 11.8, hematocrit was normal, and platelet count was normal. The arterial blood gas for the patient assist controlled mode of mechanical ventilation, pH of 7.33, pCO2 of 49, pO2 of 105 with 35% oxygen supplementation. BMP this morning, glucose 134, BUN normal, creatinine normal, sodium 106, chloride 111. The urine culture, no bacterial growth, final results. Chest x-ray of the patient that was done this morning shows NG tube were noted in appropriate position. The orogastric tube was noted in proper position. No acute pulmonary infiltration. IMPRESSION: 1. The patient with acute severe exacerbation of bronchial asthma, eosinophilia. The patient could respond to treatment, improving. 2. The patient's hypercapnia for the patient secondary to acute respiratory failure. 3. History of chronic nicotine abuse. 4. Mzru-ou-tomdakfz protein calorie malnutrition. [place], [place] PROGRESS NOTE NAME: RAFIQ FAJARDO [facility] #: [id number] UNIT #: [id number] ROOM: [facility] DOCTOR: MIKE SOSA MD,DAVIDE BIRTHDATE: [birth year] 5. Electrolyte imbalance secondary to intravenous fluid administration. PLAN OF MANAGEMENT: Monitoring the culture results for the patient. Continue nutrition support. Completely discontinue sedation for the patient until the patient is noted fully awake. Once the patient noted awake, start the patient on CPAP 5, pressure support of 10 for at least 2 hours. Arterial blood gas will be done after that with clinical assessment. Arterial blood gases reviewed for the patient, consider possible liberation from mechanical ventilation. In the meantime, continue ventilator bundle management previously in progress. Usual care. All other supportive therapy, plan of management, assessment and management of today's for the patient was discussed with the patient's in detail at the bedside as well. Total time in pulmonary critical care evaluation and management for this note was 35 minutes. DAVIDE MCKEON MD CM:PNTRANS [phone] DAVIDE SOSA MD 08/26/173 interface
--- NOTE | ~2017-08-23 | PR ---
[place], [place] PROGRESS NOTE NAME: RAFIQ FAJARDO [facility] #: [id number] UNIT #: [id number] ROOM: 506 DOCTOR: MIKE SOSA MD,DAVIDE BIRTHDATE: [birth year] DOS: 08/29/2017 SUBJECTIVE: She has been transferred to a telemetry floor at this time. She has been noted with edema lower extremity, shortness breath, cough, and wheezing has been gradually subsiding. There were symptoms of chest pain and abdominal pain. Denies symptoms of nausea, vomiting, diarrhea, general weakness and fatigue. The patient noted improving gradually. There were no symptoms of abdominal pain, hematemesis, melena, or dizziness. She has been using the oxygen supplementation ordered as with the BiPAP. The coughing has been resolving progressively. Remaining systems are rather were reviewed. They were noted all negative. OBJECTIVE: VITAL SIGNS: For the patient, which was reviewed shows temperature remains normal, respiratory rate 18 this morning, heart rate 87, blood pressure 26/78. Pulse oxygen saturation on 2 liters 96% saturation. HEENT: No new change. Head was atraumatic. NECK: Supple, no acute change. NECK: Supple. CARDIOVASCULAR: S1, S2 audible. No added sounds. LUNGS: Noted moderate. Decreased breath sounds with mild to moderate expiratory wheezing. Continue improve progressively. ABDOMEN: Flat, soft, nontender . EXTREMITY: Show 1-2+ pitting edema of bilateral lower extremities. MUSCULOSKELETAL: With out any acute deformities. SKIN: Noted with lesion or rash except dryness of the skin of the lower extremities was noted. IMPRESSION: 1. The patient noted with progressive resolution, but gradual of acute exacerbation of bronchial asthma. 2. Edema, lower extremity. The patient most likely did use corticosteroids. 3. The patient with an improving over debility progressively. 4. Past history of heavy nicotine use. PLAN OF TREATMENT: Start the patient on oral Lasix 40 mg daily for this patient to help improve the edema of the lower extremities. Continuation of other plan of therapy for the patient at this time as in progress. Monitoring of the edema for the patient improvement. The patient with current dose of Lasix. Other supportive plan of management and care. Other therapies. Usual medical management. Additional treatment changes to be made for this patient based on the progression of the illness. [place], [place] PROGRESS NOTE NAME: RAFIQ FAJARDO UNIT #: [id number] ROOM: 506 DOCTOR: DAVIDE MCCONNELL MD BIRTHDATE: [birth year] DAVIDE MCKEON MD CM:PNYAYA [id number] DAVIDE SOSA MD 08/29/17 1639 interface
--- NOTE | ~2017-08-23 | PROC NOTE ---
[place], [place] PROCEDURE NOTE [id number] #: [id number] ROOM: [facility] DOCTOR: MIKE SOSA MD,DAVIDE BIRTHDATE: [birth year] DOS: 08/25/2017 PREOPERATIVE DIAGNOSIS: Excessive severe cough and suspected mucus impaction. POSTOPERATIVE DIAGNOSIS: Excessive severe cough and suspected mucus impaction. PROCEDURE DESCRIPTION: Informed consent obtained for the patient's . The patient was continued to be sedated. The procedure was done in negative pressure room in the Intensive Care Unit. The bronchoscope advanced in to the endotracheal tube, lower part of trachea. Lower part trachea for the patient noted with some redness and small amount of mucus secretion. Marleny noted sharp. Right upper, right lower, right middle, left upper, lingular lower bronchi were all noted with a moderate amount of thick plugs of mucus, which were cleared up with normal saline wash. No obstructive lesions were noted. Procedure was well tolerated by the patient without any difficulty. Postoperative findings will be discussed with the patient as well. The bronchial washing sent for all the necessary cultures. The procedure was well tolerated for this patient without any complications. No changes at this time in the treatment needs to be done for this patient based on the current bronchoscopy. Endotracheal tube was observed at the appropriate position 4 cm above the marleny level. The bronchoscopy note for this patient was done in addition to pulmonary critical services ordered as a separate billable procedure. DAVIDE MCKEON MD CM:PROCNOTE:PROCEDURE NOTE [id number] DAVIDE SOSA MD
[~2017-08-23 14:41] MED LIST changes: +ADDERALL XR20 MG PO; +ALBUTEROL2.5 MG/0.5 INH
[2017-08-23 14:44] VITALS: BP 137/65
[2017-08-23 15:09] LABS: BASO # 0.1 10*3/uL (0.0-0.1); BASO % 0.6 % (0.0-1.0); EOS # 0.7 10*3/uL (0.0-0.4); EOS % 9.1 % (1.0-4.0); HEMATOCRIT 45.3 % (37.0-47.0); HEMOGLOBIN 14.5 g/dl (12.0-16.0); LYMPH # 1.4 10*3/uL (1.3-4.4); LYMPH % 17.6 % (27.0-41.0); MEAN CELL VOLUME 90.2 fl (81.0-99.0); MEAN CORPUSCULAR HGB 28.9 pg (27.0-31.0); MEAN PLATELET VOLUME 10.3 fl (9.6-12.3); MONO % 12.5 % (3.0-9.0); NEUT # 4.8 10*3/uL (2.3-7.9); PLATELET COUNT AUTOMATED 236 10*3/uL (130-400); RED BLOOD COUNT 5.02 10*6/uL (4.10-5.10); RED CELL DISTRI WIDTH 14.9 % (0-14.5); WHITE BLOOD COUNT 8.1 10*3/uL (4.8-10.8)
[2017-08-23 15:18] LABS: ACT PARTIAL THROMBO TIME 28.1 SECONDS (20.8-31.5); INTERNATIONAL NORM RATIO 0.9 (2.0-3.5)
[2017-08-23 15:25] LABS: ALBUMIN 3.3 gm/dl (3.1-4.5); ALKALINE PHOSPHATASE 91 U/L (45-117); BUN 4 mg/dl (7-24); CHLORIDE 105 mmol/L (98-107); CREATININE 0.77 mg/dL (0.55-1.02); LIPASE 78 U/L (73-393); POTASSIUM 3.7 mmol/L (3.5-5.1); SGOT/AST 15 IU/L (3-35); SGPT/ALT 22 U/L (12-78); SODIUM 138 mmol/L (136-145); TOTAL PROTEIN 6.9 gm/dL (6.4-8.2)
[2017-08-23 15:29] LABS: TROPONIN I < 0.015 ng/ml (<0.045)
[2017-08-23] MEDS ORDERED: FLONASE ALLERG9.9 ML NAS (16:10)
[2017-08-23 16:16] VITALS: BP 128/81
[2017-08-23 17:30] VITALS: BP 147/70
[2017-08-23 20:00] VITALS: BP 115/81; BP 132/61
[2017-08-23 22:58] LABS: ABG BASE EXCESS -0.9 mmol/L (-2.0-2.0); ABG HCO3 25.8 mmol/l (22-26); ABG O2 SATURATION 96.4 % (95-97); ARTERIAL BLOOD GAS PCO2 51.6 mmHg (35-45); ARTERIAL BLOOD GAS PH 7.317 (7.35-7.45); ARTERIAL BLOOD GAS PO2 91.4 mmHg (80-90)
[2017-08-24] VITALS: BP 146/86
[2017-08-24 03:39] VITALS: BP 157/121
[2017-08-24 04:23] VITALS: BP 154/80
[2017-08-24 05:25] LABS: ABG HCO3 24.9 mmol/l (22-26); ABG O2 SATURATION 95.5 % (95-97); ARTERIAL BLOOD GAS PCO2 57.9 mmHg (35-45); ARTERIAL BLOOD GAS PH 7.255 (7.35-7.45); ARTERIAL BLOOD GAS PO2 88.8 mmHg (80-90)
[2017-08-24 07:01] LABS: BUN 11 mg/dl (7-24); CHLORIDE 106 mmol/L (98-107); CHOLESTEROL 184 mg/dL (<200); HDL CHOLESTEROL 85 mg/dl (40-60); LDL CHOLESTEROL 89 mg/dL (9-159); PHOSPHOROUS 4.4 mg/dL (2.5-4.9); SODIUM 140 mmol/L (136-145); TRIGLYCERIDES 52 mg/dl (<150); VLDL CHOLESTEROL 10 mg/dL (6-40)
[2017-08-24 07:05] LABS: HEMATOCRIT 45.9 % (37.0-47.0); HEMOGLOBIN 14.6 g/dl (12.0-16.0); MEAN CELL VOLUME 92.5 fl (81.0-99.0); MEAN CORPUSCULAR HGB 29.4 pg (27.0-31.0); MEAN CORPUSCULAR HGB CONC 31.8 g/dl (33.0-37.0); MEAN PLATELET VOLUME 10.7 fl (9.6-12.3); PLATELET COUNT AUTOMATED 247 10*3/uL (130-400); RED BLOOD COUNT 4.96 10*6/uL (4.10-5.10); RED CELL DISTRI WIDTH 15.1 % (0-14.5); WHITE BLOOD COUNT 10.5 10*3/uL (4.8-10.8)
[2017-08-24 07:08] LABS: THYROID STIM HORMONE (HS) 0.569 uIU/ml (0.358-4.75)
[2017-08-24 07:10] LABS: BURR CELLS FEW; PLATELET SUFFICIENCY NORMAL (NORMAL); TOTAL CELLS COUNTED 100 #CELLS
[2017-08-24 08:00] VITALS: BP 108/61
[2017-08-24 09:28] LABS: ABG BASE EXCESS -4.2 mmol/L (-2.0-2.0); ABG HCO3 25.8 mmol/l (22-26); ABG O2 SATURATION 92.9 % (95-97); ARTERIAL BLOOD GAS PO2 74.8 mmHg (80-90)
[2017-08-24 09:38] LABS: ARTERIAL BLOOD GAS PH 7.191 (7.35-7.45)
[2017-08-24 10:16] LABS: BILIRUBIN NEGATIVE (NEGATIVE); BLOOD 3+ (NEGATIVE); CLARITY SL CLOUDY (CLEAR); COLOR YELLOW (YELLOW); GLUCOSE NEGATIVE (NEGATIVE); KETONE NEGATIVE (NEGATIVE); LEUKO ESTERASE NEGATIVE (NEGATIVE); NITRITE NEGATIVE (NEGATIVE); PH 5.5 (5.0-9.0); SPECIFIC GRAVITY >= 1.030 (1.005-1.030); UROBILINOGEN 0.2 E.U./dl (0.2-1.0)
[2017-08-24 10:49] LABS: MUCOUS TRACE; RBC 31-40 rbc/hpf (0-2)
[2017-08-24 12:00] VITALS: BP 111/67
[2017-08-24 13:51] LABS: ABG BASE EXCESS -2.8 mmol/L (-2.0-2.0); ABG HCO3 27.2 mmol/l (22-26); ARTERIAL BLOOD GAS PH 7.199 (7.35-7.45)
[2017-08-24 13:56] LABS: ARTERIAL BLOOD GAS PCO2 71.7 mmHg (35-45)
[2017-08-24 16:15] LABS: ABG BASE EXCESS -0.7 mmol/L (-2.0-2.0); ABG HCO3 26.2 mmol/l (22-26); ABG O2 SATURATION 98.2 % (95-97); ARTERIAL BLOOD GAS PCO2 54.5 mmHg (35-45); ARTERIAL BLOOD GAS PH 7.301 (7.35-7.45)
[2017-08-24 20:00] VITALS: BP 96/67
[2017-08-25] VITALS (9 sets, daily range): BP systolic 91–104; BP diastolic 46–66
[2017-08-25 05:04] LABS: BASO % 0.1 % (0.0-1.0); EOS % 0.1 % (1.0-4.0); HEMATOCRIT 40.8 % (37.0-47.0); HEMOGLOBIN 12.7 g/dl (12.0-16.0); LYMPH # 0.9 10*3/uL (1.3-4.4); LYMPH % 4.9 % (27.0-41.0); MEAN CELL VOLUME 94.2 fl (81.0-99.0); MEAN CORPUSCULAR HGB 29.3 pg (27.0-31.0); MEAN CORPUSCULAR HGB CONC 31.1 g/dl (33.0-37.0); MEAN PLATELET VOLUME 10.5 fl (9.6-12.3); MONO # 0.8 10*3/uL (0.1-1.0); MONO % 4.5 % (3.0-9.0); NEUT % 89.8 % (47.0-73.0); PLATELET COUNT AUTOMATED 228 10*3/uL (130-400); RED BLOOD COUNT 4.33 10*6/uL (4.10-5.10); RED CELL DISTRI WIDTH 15.3 % (0-14.5); WHITE BLOOD COUNT 18.9 10*3/uL (4.8-10.8)
[2017-08-25 05:18] LABS: BUN 16 mg/dl (7-24); CHLORIDE 106 mmol/L (98-107); CREATININE 0.82 mg/dL (0.55-1.02); POTASSIUM 4.1 mmol/L (3.5-5.1); SODIUM 142 mmol/L (136-145)
[2017-08-25 07:41] LABS: ABG BASE EXCESS 2.1 mmol/L (-2.0-2.0); ABG HCO3 28.1 mmol/l (22-26); ABG O2 SATURATION 96.3 % (95-97); ARTERIAL BLOOD GAS PCO2 52.4 mmHg (35-45); ARTERIAL BLOOD GAS PH 7.349 (7.35-7.45); ARTERIAL BLOOD GAS PO2 91.3 mmHg (80-90)
[2017-08-25 13:31] LABS: PREALBUMIN 19 mg/dl (20-40)
[2017-08-26] VITALS (9 sets, daily range): BP systolic 88–155; BP diastolic 51–94
[2017-08-26 05:46] LABS: BUN 23 mg/dl (7-24); CHLORIDE 111 mmol/L (98-107); CREATININE 0.63 mg/dL (0.55-1.02); POTASSIUM 4.1 mmol/L (3.5-5.1); SODIUM 146 mmol/L (136-145)
[2017-08-26 06:05] LABS: BASO % 0.1 % (0.0-1.0); EOS % 0.1 % (1.0-4.0); HEMATOCRIT 37.6 % (37.0-47.0); HEMOGLOBIN 11.8 g/dl (12.0-16.0); LYMPH # 0.8 10*3/uL (1.3-4.4); LYMPH % 4.7 % (27.0-41.0); MEAN CELL VOLUME 94.7 fl (81.0-99.0); MEAN CORPUSCULAR HGB 29.7 pg (27.0-31.0); MEAN CORPUSCULAR HGB CONC 31.4 g/dl (33.0-37.0); MEAN PLATELET VOLUME 10.9 fl (9.6-12.3); MONO # 0.7 10*3/uL (0.1-1.0); MONO % 4.2 % (3.0-9.0); NEUT # 14.4 10*3/uL (2.3-7.9); NUCLEATED RED BLOOD CELL 0.2 % (0.0-0.0); PLATELET COUNT AUTOMATED 233 10*3/uL (130-400); RED BLOOD COUNT 3.97 10*6/uL (4.10-5.10); RED CELL DISTRI WIDTH 15.5 % (0-14.5); WHITE BLOOD COUNT 16.1 10*3/uL (4.8-10.8)
[2017-08-26 07:39] LABS: ABG BASE EXCESS 0.2 mmol/L (-2.0-2.0); ABG HCO3 26.1 mmol/l (22-26); ABG O2 SATURATION 97.7 % (95-97); ARTERIAL BLOOD GAS PCO2 49.7 mmHg (35-45); ARTERIAL BLOOD GAS PH 7.339 (7.35-7.45)
[2017-08-26 13:34] LABS: ABG BASE EXCESS 2.6 mmol/L (-2.0-2.0); ABG HCO3 27.6 mmol/l (22-26); ABG O2 SATURATION 98.3 % (95-97); ARTERIAL BLOOD GAS PCO2 46.5 mmHg (35-45); ARTERIAL BLOOD GAS PH 7.392 (7.35-7.45)
[2017-08-26 15:06] LABS: ACID FAST SPEC PROCESSING Concentration (.)
[2017-08-27] VITALS: BP 124/66
[2017-08-27 01:06] LABS: ADENOVIRUS Negative (Negative); INFLUENZA A Negative (Negative); INFLUENZA B Negative (Negative); METAPNEUMOVIRUS Negative (Negative); PARAINFLUENZA 1 Negative (Negative); PARAINFLUENZA 2 Negative (Negative); PARAINFLUENZA 3 Negative (Negative); RHINOVIRUS Positive (Negative); RSV A Negative (Negative); RSV B Negative (Negative)
[2017-08-27 04:00] VITALS: BP 134/80
[2017-08-27 06:59] LABS: BASO % 0.1 % (0.0-1.0); EOS % 0.2 % (1.0-4.0); HEMATOCRIT 40.6 % (37.0-47.0); HEMOGLOBIN 12.5 g/dl (12.0-16.0); MEAN CORPUSCULAR HGB 28.9 pg (27.0-31.0); MEAN CORPUSCULAR HGB CONC 30.8 g/dl (33.0-37.0); MEAN PLATELET VOLUME 10.9 fl (9.6-12.3); MONO # 0.6 10*3/uL (0.1-1.0); MONO % 4.4 % (3.0-9.0); NEUT # 12.4 10*3/uL (2.3-7.9); NEUT % 87.2 % (47.0-73.0); NUCLEATED RED BLOOD CELL 0.1 % (0.0-0.0); PLATELET COUNT AUTOMATED 231 10*3/uL (130-400); RED BLOOD COUNT 4.32 10*6/uL (4.10-5.10); RED CELL DISTRI WIDTH 15.5 % (0-14.5); WHITE BLOOD COUNT 14.2 10*3/uL (4.8-10.8)
[2017-08-27 07:22] LABS: BUN 23 mg/dl (7-24); CHLORIDE 106 mmol/L (98-107); CREATININE 0.54 mg/dL (0.55-1.02); POTASSIUM 3.9 mmol/L (3.5-5.1); SODIUM 143 mmol/L (136-145)
[2017-08-27 08:00] VITALS: BP 154/96
[2017-08-27 12:00] VITALS: BP 148/76
[2017-08-27 16:00] VITALS: BP 114/66
[2017-08-27 20:00] VITALS: BP 112/66
[2017-08-28] VITALS: BP 122/66
[2017-08-28 04:00] VITALS: BP 134/71
[2017-08-28 04:23] LABS: BASO % 0.1 % (0.0-1.0); EOS % 0.1 % (1.0-4.0); HEMOGLOBIN 13.2 g/dl (12.0-16.0); LYMPH # 0.9 10*3/uL (1.3-4.4); LYMPH % 8.4 % (27.0-41.0); MEAN CELL VOLUME 92.3 fl (81.0-99.0); MEAN CORPUSCULAR HGB CONC 31.4 g/dl (33.0-37.0); MEAN PLATELET VOLUME 10.3 fl (9.6-12.3); MONO # 0.5 10*3/uL (0.1-1.0); MONO % 5.1 % (3.0-9.0); NEUT # 8.7 10*3/uL (2.3-7.9); NEUT % 85.5 % (47.0-73.0); NUCLEATED RED BLOOD CELL 0.3 % (0.0-0.0); PLATELET COUNT AUTOMATED 235 10*3/uL (130-400); RED BLOOD COUNT 4.55 10*6/uL (4.10-5.10); RED CELL DISTRI WIDTH 15.1 % (0-14.5); WHITE BLOOD COUNT 10.1 10*3/uL (4.8-10.8)
[2017-08-28 04:36] LABS: BUN 20 mg/dl (7-24); CHLORIDE 104 mmol/L (98-107); CREATININE 0.55 mg/dL (0.55-1.02); POTASSIUM 3.9 mmol/L (3.5-5.1); SODIUM 143 mmol/L (136-145)
[2017-08-28 08:00] VITALS: BP 151/83
[2017-08-28 12:00] VITALS: BP 125/74
[2017-08-28 16:00] VITALS: BP 129/90
[2017-08-28 20:00] VITALS: BP 148/85
[2017-08-29] VITALS: BP 132/84
[2017-08-29 08:00] VITALS: BP 126/78
[2017-08-29 12:00] VITALS: BP 156/86
[2017-08-29 16:00] VITALS: BP 133/67
[2017-08-29 20:00] VITALS: BP 114/66
[2017-08-30] VITALS: BP 101/63
[2017-08-30 08:00] VITALS: BP 103/73
[2017-08-30 12:00] VITALS: BP 113/72
[2017-08-30] MEDS ORDERED: VITAMIN D31000 UNI1 PO (13:10)
[2017-08-30] MEDS ORDERED: FUROSEMIDE40 MG PO (13:10)
[2017-08-30] MEDS ORDERED: KLOR-CON M1010 ME1 PO (13:10)
[2017-08-30] MEDS ORDERED: RISPERIDONE0.25 M2 PO (13:10)
[2017-08-30] MEDS ORDERED: PREDNISONE10 MG PO (13:11)
== END 2017-08-30 14:03 | disposition home or self-care (01) | DRG 871 ==
LOC: ED 14:41 → EDHOLD 16:34 → ICCU 16:34 → 5E 17:05 → 4E 17:30 → 5E 17:30 → ICCU 08-24 03:11 → 5E 08-28 14:23
PROVIDERS: Internal Medicine; Internal Medicine Critical Care Medicine; Nurse Practitioner Family; Student in an Organized Health Care Education/Training Program
PROC: 5A1945Z Respiratory Ventilation, 24-96 Consecutive Hours (ICD-10-PCS; principal; 2017-08-24)
PROC: 0BH17EZ Insertion of Endotracheal Airway into Trachea, Via Natural or Artificial Opening (ICD-10-PCS; 2017-08-24)
PROC: 0BC98ZZ Extirpation of Matter from Lingula Bronchus, Via Natural or Artificial Opening Endoscopic (ICD-10-PCS; 2017-08-25)
PROC: 0BC48ZZ Extirpation of Matter from Right Upper Lobe Bronchus, Via Natural or Artificial Opening Endoscopic (ICD-10-PCS; 2017-08-25)
PROC: 0BC88ZZ Extirpation of Matter from Left Upper Lobe Bronchus, Via Natural or Artificial Opening Endoscopic (ICD-10-PCS; 2017-08-25)
PROC: 0BC58ZZ Extirpation of Matter from Right Middle Lobe Bronchus, Via Natural or Artificial Opening Endoscopic (ICD-10-PCS; 2017-08-25)
PROC: 0BC38ZZ Extirpation of Matter from Right Main Bronchus, Via Natural or Artificial Opening Endoscopic (ICD-10-PCS; 2017-08-25)
PROC: 0BC78ZZ Extirpation of Matter from Left Main Bronchus, Via Natural or Artificial Opening Endoscopic (ICD-10-PCS; 2017-08-25)
PROC: 0BC68ZZ Extirpation of Matter from Right Lower Lobe Bronchus, Via Natural or Artificial Opening Endoscopic (ICD-10-PCS; 2017-08-25)
PROC: 0BCB8ZZ Extirpation of Matter from Left Lower Lobe Bronchus, Via Natural or Artificial Opening Endoscopic (ICD-10-PCS; 2017-08-25)
PROC: 0BC18ZZ Extirpation of Matter from Trachea, Via Natural or Artificial Opening Endoscopic (ICD-10-PCS; 2017-08-25)
PROC: 0BC28ZZ Extirpation of Matter from Carina, Via Natural or Artificial Opening Endoscopic (ICD-10-PCS; 2017-08-25)
PROC: 5A09357 Assistance with Respiratory Ventilation, Less than 24 Consecutive Hours, Continuous Positive Airway Pressure (ICD-10-PCS; 2017-08-27)
DX: A41.9 Sepsis, unspecified organism (principal); J18.9 Pneumonia, unspecified organism; J96.21 Acute and chronic respiratory failure with hypoxia; T17.590A Other foreign object in bronchus causing asphyxiation, initial encounter; T17.490A Other foreign object in trachea causing asphyxiation, initial encounter; E44.0 Moderate protein-calorie malnutrition; J96.22 Acute and chronic respiratory failure with hypercapnia; J44.0 Chronic obstructive pulmonary disease with (acute) lower respiratory infection; J44.1 Chronic obstructive pulmonary disease with (acute) exacerbation; J45.51 Severe persistent asthma with (acute) exacerbation; D72.1 Eosinophilia; R65.20 Severe sepsis without septic shock; D72.810 Lymphocytopenia; R79.82 Elevated C-reactive protein (CRP); R00.0 Tachycardia, unspecified; E55.9 Vitamin D deficiency, unspecified; F32.9 Major depressive disorder, single episode, unspecified; X58.XXXA Exposure to other specified factors, initial encounter; T38.0X5A Adverse effect of glucocorticoids and synthetic analogues, initial encounter; F41.1 Generalized anxiety disorder; Z88.0 Allergy status to penicillin; Z88.2 Allergy status to sulfonamides; Z91.040 Latex allergy status; Z99.81 Dependence on supplemental oxygen; Y92.89 Other specified places as the place of occurrence of the external cause; Z71.6 Tobacco abuse counseling; Z98.51 Tubal ligation status; Z83.6 Family history of other diseases of the respiratory system; Z82.49 Family history of ischemic heart disease and other diseases of the circulatory system; Z68.27 Body mass index [BMI] 27.0-27.9, adult; Y93.89 Activity, other specified; Y99.8 Other external cause status

== ENCOUNTER → 2017-09-22 | Outpatient (CLI) | payer OTHER ==
[~2017-09-22] MED LIST changes: +FLONASE ALLERG9.9 ML NAS; +FUROSEMIDE40 MG PO; +KLOR-CON M1010 ME1 PO; +RISPERIDONE0.25 M2 PO; +VITAMIN D31000 UNI1 PO
== END | disposition home or self-care (01) ==
LOC: CARD 09:30
DX: R06.02 Shortness of breath (principal)

== ENCOUNTER 2017-10-11 13:13 | Emergency (ER) | payer OTHER ==
[~2017-10-11] VITALS: Ht 162.5 cm; Wt 72.6 kg
[~2017-10-11 13:13] MED LIST changes: -ANORO ELLIPTA1 EACH INH; -ARNUITY ELLIP200 MCG INH
[2017-10-11] MEDS ORDERED: ANORO ELLIPTA1 EACH INH (13:29)
[2017-10-11] MEDS ORDERED: ARNUITY ELLIP200 MCG INH (13:29)
[2017-10-11] MEDS ORDERED: VIBRAMYCIN100 MG PO (13:43)
== END 2017-10-11 13:48 | disposition home or self-care (01) ==
LOC: ED 13:13
DX: L02.11 Cutaneous abscess of neck (principal); J44.1 Chronic obstructive pulmonary disease with (acute) exacerbation; F41.9 Anxiety disorder, unspecified; E83.41 Hypermagnesemia; Z98.51 Tubal ligation status; Z79.899 Other long term (current) drug therapy

== ENCOUNTER → 2017-10-11 | Outpatient (CLI) | payer OTHER ==
[~2017-10-11] MED LIST changes: +ANORO ELLIPTA1 EACH INH; +ARNUITY ELLIP200 MCG INH
[2017-10-12 08:08] LABS: ALPHA-1-ANTITRYPSIN, SERUM 179 mg/dL (90-200)
== END | disposition home or self-care (01) ==
LOC: LAB 12:57
PROVIDERS: Internal Medicine Critical Care Medicine
DX: J44.9 Chronic obstructive pulmonary disease, unspecified (principal)

== ENCOUNTER 2018-07-14 08:50 | Emergency (ER) | payer OTHER ==
[~2018-07-14] VITALS: Ht 162.5 cm; Wt 63.5 kg
[~2018-07-14 08:50] MED LIST changes: +ANORO ELLIPTA1 EACH INH; +ARNUITY ELLIP200 MCG INH
[2018-07-14 10:22] LABS: BASO % 0.3 % (0.0-1.0); EOS # 0.1 10*3/uL (0.0-0.4); EOS % 0.9 % (1.0-4.0); HEMATOCRIT 47.8 % (37.0-47.0); HEMOGLOBIN 15.1 g/dl (12.0-16.0); LYMPH # 1.1 10*3/uL (1.3-4.4); LYMPH % 16.4 % (27.0-41.0); MEAN CELL VOLUME 90.7 fl (81.0-99.0); MEAN CORPUSCULAR HGB 28.7 pg (27.0-31.0); MEAN CORPUSCULAR HGB CONC 31.6 g/dl (33.0-37.0); MEAN PLATELET VOLUME 10.6 fl (9.6-12.3); MONO # 0.7 10*3/uL (0.1-1.0); MONO % 10.9 % (3.0-9.0); NEUT # 4.9 10*3/uL (2.3-7.9); NEUT % 71.4 % (47.0-73.0); PLATELET COUNT AUTOMATED 198 10*3/uL (130-400); RED BLOOD COUNT 5.27 10*6/uL (4.10-5.10); RED CELL DISTRI WIDTH 14.6 % (0-14.5); WHITE BLOOD COUNT 6.8 10*3/uL (4.8-10.8)
[2018-07-14 10:44] LABS: ALBUMIN 3.1 gm/dl (3.1-4.5); ALKALINE PHOSPHATASE 220 U/L (45-117); BUN 14 mg/dl (7-24); CHLORIDE 105 mmol/L (98-107); CREATININE 0.81 mg/dL (0.55-1.02); POTASSIUM 4.5 mmol/L (3.5-5.1); SGOT/AST 94 IU/L (3-35); SGPT/ALT 81 U/L (12-78); SODIUM 138 mmol/L (136-145); TOTAL PROTEIN 7.4 gm/dL (6.4-8.2)
[2018-07-14] MEDS ORDERED: PROAIR HFA8.5 GM INH (11:17)
[2018-07-14] MEDS ORDERED: PREDNISONE50 MG PO (11:17)
[2018-07-14] MEDS ORDERED: LEVOFLOXACIN500 MG PO (11:17)
== END 2018-07-14 11:27 | disposition home or self-care (01) ==
LOC: ED 08:50
PROVIDERS: Nurse Practitioner Family
DX: J18.9 Pneumonia, unspecified organism (principal); J44.9 Chronic obstructive pulmonary disease, unspecified

== ENCOUNTER → 2018-07-28 | Outpatient (CLI) | payer OTHER ==
[~2018-07-28] MED LIST changes: +BENADRYL25 M2 PO; +CYCLOBENZAPRINE5 M3 PO; +ELIMITE 5%60 GM T; +LEVOFLOXACIN500 MG PO
[2018-07-28 10:48] LABS: ALBUMIN 3.4 gm/dl (3.1-4.5); ALKALINE PHOSPHATASE 104 U/L (45-117); BUN 13 mg/dl (7-24); CHLORIDE 104 mmol/L (98-107); CREATININE 0.77 mg/dL (0.55-1.02); POTASSIUM 3.4 mmol/L (3.5-5.1); SGOT/AST 9 IU/L (3-35); SGPT/ALT 24 U/L (12-78); SODIUM 139 mmol/L (136-145); TOTAL PROTEIN 6.7 gm/dL (6.4-8.2)
== END | disposition home or self-care (01) ==
LOC: LAB 10:00
PROVIDERS: Nurse Practitioner Primary Care
DX: J18.9 Pneumonia, unspecified organism (principal); R74.8 Abnormal levels of other serum enzymes; R05 Cough; J43.9 Emphysema, unspecified; Z87.891 Personal history of nicotine dependence

== ENCOUNTER 2018-09-18 20:16 | Emergency (ER) | payer OTHER ==
[~2018-09-18] VITALS: Ht 162.5 cm; Wt 67.1 kg
[~2018-09-18 20:16] MED LIST changes: -BENADRYL25 M2 PO; -CYCLOBENZAPRINE5 M3 PO; -ELIMITE 5%60 GM T
[2018-09-18] MEDS ORDERED: MEDROL DOSEPAK4 MG PO (20:31)
[2018-09-18] MEDS ORDERED: BENADRYL25 M2 PO (20:31)
[2018-09-18] MEDS ORDERED: ELIMITE 5%60 GM T (20:31)
== END 2018-09-18 20:43 | disposition home or self-care (01) ==
LOC: ED 20:16
DX: R21 Rash and other nonspecific skin eruption (principal); L29.9 Pruritus, unspecified; R23.4 Changes in skin texture; F17.200 Nicotine dependence, unspecified, uncomplicated; Z88.0 Allergy status to penicillin; Z88.2 Allergy status to sulfonamides; Z91.040 Latex allergy status; Z79.899 Other long term (current) drug therapy

== ENCOUNTER 2018-10-14 17:00 | Emergency (ER) | payer OTHER ==
[~2018-10-14] VITALS: Ht 162.5 cm; Wt 67.1 kg
[~2018-10-14 17:00] MED LIST changes: +BENADRYL25 M2 PO; +ELIMITE 5%60 GM T
[2018-10-14] MEDS ORDERED: CYCLOBENZAPRINE5 M3 PO (19:03)
== END 2018-10-14 19:30 | disposition home or self-care (01) ==
LOC: ED 17:00
DX: S46.912A Strain of unspecified muscle, fascia and tendon at shoulder and upper arm level, left arm, initial encounter (principal); M54.2 Cervicalgia; J44.9 Chronic obstructive pulmonary disease, unspecified; F17.200 Nicotine dependence, unspecified, uncomplicated; Z88.0 Allergy status to penicillin; Z88.2 Allergy status to sulfonamides; Z91.040 Latex allergy status; Z79.899 Other long term (current) drug therapy; W10.9XXA Fall (on) (from) unspecified stairs and steps, initial encounter; Y93.89 Activity, other specified; Y92.89 Other specified places as the place of occurrence of the external cause; Y99.8 Other external cause status

== ENCOUNTER → 2018-11-30 | Outpatient (CLI) | payer OTHER ==
[~2018-11-30] MED LIST changes: +CYCLOBENZAPRINE5 M3 PO
== END | disposition home or self-care (01) ==
LOC: MRI 12:39
DX: M48.02 Spinal stenosis, cervical region (principal); M54.12 Radiculopathy, cervical region; M50.30 Other cervical disc degeneration, unspecified cervical region; M25.78 Osteophyte, vertebrae

== ENCOUNTER 2018-12-02 19:51 | Emergency (ER) | payer OTHER ==
[~2018-12-02] VITALS: Ht 162.5 cm; Wt 63.5 kg
== END 2018-12-02 20:45 | disposition home or self-care (01) ==
LOC: ED 19:51
DX: G89.29 Other chronic pain (principal); M25.512 Pain in left shoulder; F17.200 Nicotine dependence, unspecified, uncomplicated; Z88.0 Allergy status to penicillin; Z88.2 Allergy status to sulfonamides; Z91.040 Latex allergy status; Z79.899 Other long term (current) drug therapy; Z79.2 Long term (current) use of antibiotics

== ENCOUNTER → 2019-07-18 | Outpatient (CLI) | payer OTHER | END | disposition home or self-care (01) | LOC: RAD 13:13 | DX: J43.9 Emphysema, unspecified (principal); F17.200 Nicotine dependence, unspecified, uncomplicated; J45.909 Unspecified asthma, uncomplicated; Z87.01 Personal history of pneumonia (recurrent) ==

== ENCOUNTER 2019-07-30 18:14 | Emergency (ER) | payer OTHER ==
[~2019-07-30] VITALS: Ht 162.5 cm; Wt 65.8 kg
[2019-07-30 18:44] LABS: BASO # 0.1 10*3/uL (0.0-0.1); BASO % 0.5 % (0.0-1.0); EOS # 0.4 10*3/uL (0.0-0.4); EOS % 3.5 % (1.0-4.0); HEMATOCRIT 41.4 % (37.0-47.0); HEMOGLOBIN 13.4 g/dl (12.0-16.0); LYMPH # 2.8 10*3/uL (1.3-4.4); LYMPH % 26.2 % (27.0-41.0); MEAN CELL VOLUME 90.6 fl (81.0-99.0); MEAN CORPUSCULAR HGB 29.3 pg (27.0-31.0); MEAN CORPUSCULAR HGB CONC 32.4 g/dl (33.0-37.0); MEAN PLATELET VOLUME 10.1 fl (9.6-12.3); MONO # 0.8 10*3/uL (0.1-1.0); MONO % 7.7 % (3.0-9.0); NEUT # 6.5 10*3/uL (2.3-7.9); NEUT % 61.6 % (47.0-73.0); PLATELET COUNT AUTOMATED 281 10*3/uL (130-400); RED BLOOD COUNT 4.57 10*6/uL (4.10-5.10); RED CELL DISTRI WIDTH 14.7 % (0-14.5); WHITE BLOOD COUNT 10.6 10*3/uL (4.8-10.8)
[2019-07-30 18:56] LABS: ACT PARTIAL THROMBO TIME 27.3 SECONDS (20.0-32.1); INTERNATIONAL NORM RATIO 0.9 (2.0-3.5)
[2019-07-30 18:59] LABS: ALKALINE PHOSPHATASE 90 U/L (45-117); BUN 13 mg/dl (7-24); CHLORIDE 107 mmol/L (98-107); CREATININE 0.84 mg/dL (0.55-1.02); POTASSIUM 3.5 mmol/L (3.5-5.1); SGOT/AST 13 IU/L (3-35); SGPT/ALT 21 U/L (12-78); SODIUM 138 mmol/L (136-145); TOTAL PROTEIN 6.5 gm/dL (6.4-8.2)
[2019-07-30 19:07] LABS: TROPONIN I < 0.015 ng/ml (<0.045)
[2019-07-30] MEDS ORDERED: PREDNISONE20 M1 PO (21:11)
[2019-07-30] MEDS ORDERED: VIBRAMYCIN100 MG PO (21:11)
== END 2019-07-30 21:28 | disposition home or self-care (01) ==
LOC: ED 18:14
PROVIDERS: Emergency Medicine
DX: J44.1 Chronic obstructive pulmonary disease with (acute) exacerbation (principal); M54.9 Dorsalgia, unspecified; F41.9 Anxiety disorder, unspecified; F32.9 Major depressive disorder, single episode, unspecified; F17.200 Nicotine dependence, unspecified, uncomplicated; Z88.0 Allergy status to penicillin; Z88.2 Allergy status to sulfonamides; Z91.040 Latex allergy status; Z79.899 Other long term (current) drug therapy; Z79.2 Long term (current) use of antibiotics

== ENCOUNTER → 2019-08-02 | Outpatient (CLI) | payer OTHER | END | disposition home or self-care (01) | LOC: LAB 10:39 | DX: R07.89 Other chest pain (principal) ==

== ENCOUNTER → 2020-03-08 | Outpatient (CLI) | payer MEDICARE, MEDICAID | END | disposition home or self-care (01) | LOC: RAD 03-04 13:30 | PROVIDERS: ATTEND Nurse Practitioner Primary Care | DX: S49.91XA Unspecified injury of right shoulder and upper arm, initial encounter (principal); M54.9 Dorsalgia, unspecified; Z78.0 Asymptomatic menopausal state; X58.XXXA Exposure to other specified factors, initial encounter; Y93.9 Activity, unspecified; Y92.89 Other specified places as the place of occurrence of the external cause; Y99.9 Unspecified external cause status ==

== ENCOUNTER → 2020-04-26 | Outpatient (CLI) | payer MEDICARE, MEDICAID | END | disposition home or self-care (01) | LOC: COVID19 13:18 | PROVIDERS: ATTEND Nurse Practitioner Primary Care | DX: Z20.828 Contact with and (suspected) exposure to other viral communicable diseases (principal); J44.9 Chronic obstructive pulmonary disease, unspecified ==

== ENCOUNTER 2020-08-27 18:36 | Emergency (ER) | payer OTHER | END 2020-08-27 22:20 | disposition left against medical advice (07) | LOC: ED 18:36 | DX: S16.1XXA Strain of muscle, fascia and tendon at neck level, initial encounter (principal); J44.9 Chronic obstructive pulmonary disease, unspecified; F41.9 Anxiety disorder, unspecified; F32.9 Major depressive disorder, single episode, unspecified; Z88.0 Allergy status to penicillin; Z88.2 Allergy status to sulfonamides; Z91.040 Latex allergy status; Z79.899 Other long term (current) drug therapy; Z98.51 Tubal ligation status; Z98.890 Other specified postprocedural states; X58.XXXA Exposure to other specified factors, initial encounter; Y93.89 Activity, other specified; Y92.89 Other specified places as the place of occurrence of the external cause; Y99.8 Other external cause status ==

== ENCOUNTER → 2020-09-25 | Outpatient (CLI) | payer OTHER ==
[2020-09-25 10:37] LABS: URINE AMPHETAMINES > 1000 (1000ng/ml); URINE BARBITURATES < 200 (200ng/ml); URINE BENZODIAZEPINES < 200 (200ng/ml); URINE CANNABINOIDS (THC) < 50 (50ng/ml); URINE COCAINE < 300 (300ng/ml); URINE METHADONE < 300 (300ng/ml); URINE OPIATES < 300 (300ng/ml)
[2020-09-25 10:38] LABS: URINE PHENCYCLIDINE < 25 (25ng/ml)
== END | disposition home or self-care (01) ==
LOC: LAB 10:04
PROVIDERS: ATTEND Psychiatry & Neurology Psychiatry
DX: Z04.89 Encounter for examination and observation for other specified reasons (principal); R82.5 Elevated urine levels of drugs, medicaments and biological substances; Z79.899 Other long term (current) drug therapy

== ENCOUNTER → 2020-11-15 | Outpatient (CLI) | payer OTHER | END | disposition home or self-care (01) | LOC: RAD 10:03 | PROVIDERS: ATTEND Nurse Practitioner Primary Care | DX: J43.9 Emphysema, unspecified (principal); J40 Bronchitis, not specified as acute or chronic ==

== ENCOUNTER 2021-08-07 23:40 | Emergency (ER) | payer OTHER ==
[~2021-08-07] VITALS: Ht 167.6 cm; Wt 68.0 kg
[2021-08-08 00:10] LABS: BASO # 0.1 10*3/uL (0.0-0.1); BASO % 0.4 % (0.0-1.0); EOS # 0.5 10*3/uL (0.0-0.4); EOS % 4.1 % (1.0-4.0); HEMATOCRIT 41.6 % (37.0-47.0); LYMPH % 24.7 % (27.0-41.0); MEAN CELL VOLUME 90.4 fl (81.0-99.0); MEAN CORPUSCULAR HGB 28.7 pg (27.0-31.0); MEAN CORPUSCULAR HGB CONC 31.7 g/dl (33.0-37.0); MONO # 0.9 10*3/uL (0.1-1.0); MONO % 7.5 % (3.0-9.0); NEUT # 7.7 10*3/uL (2.3-7.9); NEUT % 63.1 % (47.0-73.0); PLATELET COUNT AUTOMATED 298 10*3/uL (130-400); WHITE BLOOD COUNT 12.2 10*3/uL (4.8-10.8)
[2021-08-08 00:23] LABS: BUN 11 mg/dl (7-24); CHLORIDE 106 mmol/L (98-107); CREATININE 0.73 mg/dL (0.55-1.02); POTASSIUM 4.1 mmol/L (3.5-5.1); SODIUM 138 mmol/L (136-145)
[2021-08-08] MEDS ORDERED: PREDNISONE20 M1 PO (00:34)
== END 2021-08-08 00:42 | disposition home or self-care (01) ==
LOC: ED 23:40
PROVIDERS: Internal Medicine
DX: J40 Bronchitis, not specified as acute or chronic (principal); J44.9 Chronic obstructive pulmonary disease, unspecified; Z88.0 Allergy status to penicillin; Z88.2 Allergy status to sulfonamides; Z91.040 Latex allergy status; Z79.899 Other long term (current) drug therapy; Z87.891 Personal history of nicotine dependence; Z98.51 Tubal ligation status

== ENCOUNTER → 2021-11-05 | Outpatient (CLI) | payer OTHER | END | disposition home or self-care (01) | LOC: RAD 09:33 | PROVIDERS: ATTEND Nurse Practitioner Family | DX: M25.512 Pain in left shoulder (principal) ==

== ENCOUNTER → 2022-07-22 | Outpatient (CLI) | payer OTHER | END | disposition home or self-care (01) | LOC: MAMMO 13:58 | PROVIDERS: ATTEND Nurse Practitioner Women's Health | DX: Z12.31 Encounter for screening mammogram for malignant neoplasm of breast (principal) ==

== ENCOUNTER 2022-08-24 14:59 | Emergency (ER) | payer OTHER ==
[~2022-08-24] VITALS: Ht 162.5 cm; Wt 56.7 kg
== END 2022-08-24 16:11 | disposition home or self-care (01) ==
LOC: ED 14:59
DX: S43.402A Unspecified sprain of left shoulder joint, initial encounter (principal); S43.401A Unspecified sprain of right shoulder joint, initial encounter; J44.9 Chronic obstructive pulmonary disease, unspecified; F41.9 Anxiety disorder, unspecified; F32.A Depression, unspecified; Z88.0 Allergy status to penicillin; Z88.2 Allergy status to sulfonamides; Z91.040 Latex allergy status; Z98.51 Tubal ligation status; Z98.890 Other specified postprocedural states; Z87.891 Personal history of nicotine dependence; X58.XXXA Exposure to other specified factors, initial encounter; Y93.89 Activity, other specified; Y92.89 Other specified places as the place of occurrence of the external cause; Y99.8 Other external cause status

== ENCOUNTER 2022-11-30 18:29 | Emergency (ER) | payer OTHER ==
[~2022-11-30] VITALS: Wt 62.6 kg
== END 2022-11-30 20:55 | disposition left against medical advice (07) ==
LOC: ED 18:29
DX: M79.642 Pain in left hand (principal); M79.641 Pain in right hand; Z88.0 Allergy status to penicillin; Z91.040 Latex allergy status; Z88.2 Allergy status to sulfonamides

== ENCOUNTER 2022-12-15 00:32 | Emergency (ER) | payer OTHER ==
[~2022-12-15] VITALS: Ht 162.5 cm; Wt 61.2 kg
[2022-12-15] MEDS ORDERED: PREDNISONE50 MG PO (01:35)
[2022-12-15] MEDS ORDERED: MELOXICAM15 MG PO (01:35)
== END 2022-12-15 01:40 | disposition home or self-care (01) ==
LOC: ED 00:32
DX: M19.042 Primary osteoarthritis, left hand (principal); M19.041 Primary osteoarthritis, right hand; J44.9 Chronic obstructive pulmonary disease, unspecified; F41.9 Anxiety disorder, unspecified; F32.A Depression, unspecified; Z88.0 Allergy status to penicillin; Z88.2 Allergy status to sulfonamides; Z91.040 Latex allergy status; Z98.51 Tubal ligation status; Z98.890 Other specified postprocedural states; F17.200 Nicotine dependence, unspecified, uncomplicated

== ENCOUNTER → 2022-12-25 | Outpatient (CLI) | payer OTHER ==
[~2022-12-25] MED LIST changes: +MELOXICAM15 MG PO
[2022-12-25 10:54] LABS: BASO # 0.1 10*3/uL (0.0-0.1); BASO % 0.4 % (0.0-1.0); EOS # 0.4 10*3/uL (0.0-0.4); EOS % 2.6 % (1.0-4.0); HEMATOCRIT 42.6 % (37.0-47.0); LYMPH # 3.2 10*3/uL (1.3-4.4); LYMPH % 22.5 % (27.0-41.0); MEAN CELL VOLUME 89.1 fl (81.0-99.0); MEAN CORPUSCULAR HGB 28.5 pg (27.0-31.0); MEAN CORPUSCULAR HGB CONC 31.9 g/dl (33.0-37.0); MEAN PLATELET VOLUME 9.4 fl (9.6-12.3); MONO # 0.8 10*3/uL (0.1-1.0); MONO % 5.8 % (3.0-9.0); NEUT # 9.5 10*3/uL (2.3-7.9); NEUT % 67.6 % (47.0-73.0); PLATELET COUNT AUTOMATED 416 10*3/uL (130-400); RED BLOOD COUNT 4.78 10*6/uL (4.10-5.10); RED CELL DISTRI WIDTH 16.1 % (0-14.5); WHITE BLOOD COUNT 14.1 10*3/uL (4.8-10.8)
[2022-12-25 11:48] LABS: ALKALINE PHOSPHATASE 105 U/L (46-116); BUN 9 mg/dl (9-23); CHLORIDE 101 mmol/L (98-107); CHOLESTEROL 198 mg/dL (<200); LDL CHOLESTEROL 95 mg/dL (9-159); POTASSIUM 3.9 mmol/L (3.4-5.1); SGPT/ALT 10 U/L (10-49); TRIGLYCERIDES 115 mg/dl (<150)
[2022-12-28 13:06] LABS: ANTI-DSDNA ANTIBODIES <1 IU/mL (0-9); ANTI-RNP ANTIBODIES <0.2 AI (0.0-0.9); ANTICHROMATIN ANTIBODIES <0.2 AI (0.0-0.9); ANTISCLERODERMA-70 AB <0.2 AI (0.0-0.9); SJOGREN ANTI-SS-A <0.2 AI (0.0-0.9); SJOREN AB, ANTI-SS-B <0.2 AI (0.0-0.9)
== END | disposition home or self-care (01) ==
LOC: LAB 10:36
PROVIDERS: ATTEND Nurse Practitioner Primary Care
DX: I10 Essential (primary) hypertension (principal); M25.40 Effusion, unspecified joint; M25.50 Pain in unspecified joint; R20.2 Paresthesia of skin; R20.0 Anesthesia of skin; Z79.899 Other long term (current) drug therapy

== ENCOUNTER 2023-04-13 00:17 | Emergency (ER) | payer OTHER ==
[~2023-04-13] VITALS: Ht 162.5 cm; Wt 58.5 kg
[2023-04-13] MEDS ORDERED: VIBRAMYCIN100 MG PO (02:32)
[2023-04-13] MEDS ORDERED: PREDNISONE20 M1 PO (02:32)
== END 2023-04-13 02:38 | disposition home or self-care (01) ==
LOC: ED 00:17
DX: J44.9 Chronic obstructive pulmonary disease, unspecified (principal); M19.90 Unspecified osteoarthritis, unspecified site; F32.A Depression, unspecified; Z88.0 Allergy status to penicillin; Z88.2 Allergy status to sulfonamides; Z91.040 Latex allergy status; Z98.51 Tubal ligation status; Z98.890 Other specified postprocedural states; F17.200 Nicotine dependence, unspecified, uncomplicated; Z20.822 Contact with and (suspected) exposure to COVID-19

== ENCOUNTER 2023-06-05 02:24 | Emergency (ER) | payer OTHER ==
[2023-06-05] MEDS ORDERED: PREDNISONE50 MG PO (03:53)
== END 2023-06-05 04:16 | disposition home or self-care (01) ==
LOC: ED 02:24
DX: M06.862 Other specified rheumatoid arthritis, left knee (principal); M06.861 Other specified rheumatoid arthritis, right knee; M06.8A Other specified rheumatoid arthritis, other specified site; F17.200 Nicotine dependence, unspecified, uncomplicated; Z88.0 Allergy status to penicillin; Z88.2 Allergy status to sulfonamides; Z91.040 Latex allergy status; Z79.899 Other long term (current) drug therapy; Z79.2 Long term (current) use of antibiotics; Z98.51 Tubal ligation status

== ENCOUNTER → 2023-09-23 | Outpatient (CLI) | payer OTHER ==
[~2023-09-23] MED LIST changes: +ADDERALL 10 MG10 MG PO; +ADDERALL5 MG PO; +ASPIRIN ADULT L81 M2 PO; +FLUTICASONE PRO12 G3 INH; +MUCUS RELIEF600 MG PO; +NICODERM CQ1 EAC2 T; +PROTONIX20 MG PO; +VISTARIL25 M2 PO; +ZANAFLEX4 M1 PO; +ZANAFLEX4 M2 PO
[2023-09-23 10:36] LABS: BASO % 0.2 % (0.0-1.0); EOS # 0.1 10*3/uL (0.0-0.4); EOS % 0.3 % (1.0-4.0); HEMATOCRIT 44.8 % (37.0-47.0); LYMPH # 1.5 10*3/uL (1.3-4.4); LYMPH % 8.5 % (27.0-41.0); MEAN CELL VOLUME 84.7 fl (81.0-99.0); MEAN CORPUSCULAR HGB 25.5 pg (27.0-31.0); MEAN CORPUSCULAR HGB CONC 30.1 g/dl (33.0-37.0); MONO # 0.6 10*3/uL (0.1-1.0); MONO % 3.4 % (3.0-9.0); NEUT # 15.2 10*3/uL (2.3-7.9); NEUT % 86.5 % (47.0-73.0); PLATELET COUNT AUTOMATED 445 10*3/uL (130-400); RED BLOOD COUNT 5.29 10*6/uL (4.10-5.10); WHITE BLOOD COUNT 17.6 10*3/uL (4.8-10.8)
[2023-09-23 11:00] LABS: ALKALINE PHOSPHATASE 116 U/L (46-116); BUN 15 mg/dl (9-23); CHLORIDE 98 mmol/L (98-107); CHOLESTEROL 172 mg/dL (<200); LDL CHOLESTEROL 97 mg/dL (9-159); POTASSIUM 4.1 mmol/L (3.4-5.1); SGPT/ALT 10 U/L (5-49); TOTAL PROTEIN 7.7 gm/dL (6.0-8.0); TRIGLYCERIDES 110 mg/dl (<150)
== END | disposition home or self-care (01) ==
LOC: LAB 10:16
PROVIDERS: ATTEND Nurse Practitioner Primary Care
DX: M05.79 Rheumatoid arthritis with rheumatoid factor of multiple sites without organ or systems involvement (principal); K21.9 Gastro-esophageal reflux disease without esophagitis; I10 Essential (primary) hypertension; R73.9 Hyperglycemia, unspecified

== ENCOUNTER 2023-10-19 22:00 | Emergency (ER) | payer OTHER ==
[~2023-10-19] VITALS: Ht 162.5 cm; Wt 67.1 kg
== END 2023-10-19 23:55 | disposition left against medical advice (07) ==
LOC: ED 22:00
DX: R06.02 Shortness of breath (principal); M54.9 Dorsalgia, unspecified; Z53.21 Procedure and treatment not carried out due to patient leaving prior to being seen by health care provider

== ENCOUNTER 2023-10-23 18:35 | Emergency (ER) | payer OTHER ==
[~2023-10-23] VITALS: Ht 162.5 cm; Wt 67.6 kg
[2023-10-23] MEDS ORDERED: IOHEXOL 300 MG/ML 100 ML VIAL IV ONE (19:15)
[2023-10-23 19:34] LABS: BASO # 0.1 10*3/uL (0.0-0.1); BASO % 0.4 % (0.0-1.0); EOS # 0.2 10*3/uL (0.0-0.4); EOS % 1.5 % (1.0-4.0); HEMATOCRIT 43.3 % (37.0-47.0); LYMPH # 3.9 10*3/uL (1.3-4.4); LYMPH % 23.6 % (27.0-41.0); MEAN CELL VOLUME 83.1 fl (81.0-99.0); MEAN CORPUSCULAR HGB 25.9 pg (27.0-31.0); MEAN CORPUSCULAR HGB CONC 31.2 g/dl (33.0-37.0); MEAN PLATELET VOLUME 10.1 fl (9.6-12.3); MONO # 0.8 10*3/uL (0.1-1.0); MONO % 4.8 % (3.0-9.0); NEUT # 11.4 10*3/uL (2.3-7.9); NEUT % 68.9 % (47.0-73.0); PLATELET COUNT AUTOMATED 408 10*3/uL (130-400); RED BLOOD COUNT 5.21 10*6/uL (4.10-5.10); RED CELL DISTRI WIDTH 17.1 % (0-14.5); WHITE BLOOD COUNT 16.5 10*3/uL (4.8-10.8)
[2023-10-23 19:52] LABS: ALKALINE PHOSPHATASE 118 U/L (46-116); BUN 21 mg/dl (9-23); CHLORIDE 104 mmol/L (98-107); POTASSIUM 3.6 mmol/L (3.4-5.1); SGPT/ALT < 7 U/L (5-49); TOTAL PROTEIN 6.9 gm/dL (6.0-8.0)
[2023-10-23] MEDS ORDERED: TRAMADOL HCL50 MG PO (23:00)
== END 2023-10-23 23:16 | disposition home or self-care (01) ==
LOC: ED 18:35
PROVIDERS: Internal Medicine
DX: S22.058A Other fracture of T5-T6 vertebra, initial encounter for closed fracture (principal); J44.9 Chronic obstructive pulmonary disease, unspecified; F41.9 Anxiety disorder, unspecified; F32.A Depression, unspecified; M19.90 Unspecified osteoarthritis, unspecified site; J45.909 Unspecified asthma, uncomplicated; F17.200 Nicotine dependence, unspecified, uncomplicated; Z88.0 Allergy status to penicillin; Z88.2 Allergy status to sulfonamides; Z91.040 Latex allergy status; Z98.890 Other specified postprocedural states; X58.XXXA Exposure to other specified factors, initial encounter; Y93.89 Activity, other specified; Y92.89 Other specified places as the place of occurrence of the external cause; Y99.8 Other external cause status

== ENCOUNTER 2023-10-28 17:55 | Emergency (ER) | payer OTHER ==
[~2023-10-28] VITALS: Ht 162.5 cm; Wt 67.1 kg
[2023-10-28] MEDS ORDERED: Ketorolac Tromethamine 30 MG/ML VIAL IM ONE (19:10)
== END 2023-10-28 19:26 | disposition home or self-care (01) ==
LOC: ED 17:55
DX: G89.29 Other chronic pain (principal); M54.9 Dorsalgia, unspecified; J44.9 Chronic obstructive pulmonary disease, unspecified; F41.9 Anxiety disorder, unspecified; F32.A Depression, unspecified; M19.90 Unspecified osteoarthritis, unspecified site; F17.200 Nicotine dependence, unspecified, uncomplicated; Z88.0 Allergy status to penicillin; Z88.2 Allergy status to sulfonamides; Z91.040 Latex allergy status; Z98.51 Tubal ligation status; Z98.890 Other specified postprocedural states

== ENCOUNTER → 2023-11-08 | Outpatient (CLI) | payer OTHER | LOC: RAD 01:19 | PROVIDERS: ATTEND Nurse Practitioner Primary Care | DX: M48.54XA Collapsed vertebra, not elsewhere classified, thoracic region, initial encounter for fracture (principal); Z78.0 Asymptomatic menopausal state ==

== ENCOUNTER 2023-11-13 23:36 | Emergency (ER) | payer OTHER | END 2023-11-14 03:36 | disposition left against medical advice (07) | LOC: ED 23:36 | DX: M54.9 Dorsalgia, unspecified (principal); R06.02 Shortness of breath; Z88.0 Allergy status to penicillin; Z88.2 Allergy status to sulfonamides; Z91.040 Latex allergy status; Z53.21 Procedure and treatment not carried out due to patient leaving prior to being seen by health care provider ==

== ENCOUNTER → 2023-11-15 | Outpatient (CLI) | payer OTHER ==
[2023-11-15 13:25] LABS: URINE AMPHETAMINES Positive (1000ng/ml); URINE BARBITURATES Negative (200ng/ml); URINE BENZODIAZEPINES Negative (200ng/ml); URINE CANNABINOIDS (THC) Negative (50ng/ml); URINE COCAINE Negative (300ng/ml); URINE METHADONE Negative (300ng/ml); URINE OPIATES Negative (300ng/ml); URINE PHENCYCLIDINE Negative (25ng/ml)
== END | disposition home or self-care (01) ==
LOC: LAB 13:01
PROVIDERS: ATTEND Psychiatry & Neurology Psychiatry
DX: R82.5 Elevated urine levels of drugs, medicaments and biological substances (principal)

== ENCOUNTER 2023-12-26 02:39 | Emergency (ER) | payer OTHER ==
[~2023-12-26] VITALS: Ht 160 cm; Wt 64.9 kg
[2023-12-26] MEDS ORDERED: HYDROmorphONE Hydrochloride 1 MG/ML SYR IM ONE (03:55)
[2023-12-26] MEDS ORDERED: Ondansetron Hydrochloride 4 MG TAB SL ONE (04:05)
== END 2023-12-26 04:21 | disposition home or self-care (01) ==
LOC: ED 02:39
DX: G89.29 Other chronic pain (principal); M54.9 Dorsalgia, unspecified; J44.9 Chronic obstructive pulmonary disease, unspecified; F41.9 Anxiety disorder, unspecified; F32.A Depression, unspecified; M19.90 Unspecified osteoarthritis, unspecified site; F17.200 Nicotine dependence, unspecified, uncomplicated; Z88.0 Allergy status to penicillin; Z88.2 Allergy status to sulfonamides; Z91.040 Latex allergy status; Z98.51 Tubal ligation status; Z98.890 Other specified postprocedural states

== ENCOUNTER 2024-01-07 17:27 | Emergency (ER) | payer OTHER ==
[~2024-01-07] VITALS: Ht 162.5 cm; Wt 64.9 kg
[2024-01-07] MEDS ORDERED: DIAZEPAM 5 MG TAB PO ONE (17:55)
[2024-01-07] MEDS ORDERED: Acetaminophen/Oxycodone 5 MG/325 MG TABLET PO ONE (17:55)
[2024-01-07] MEDS ORDERED: PERCOCET 5-3251 EACH PO (18:27)
== END 2024-01-07 18:40 | disposition home or self-care (01) ==
LOC: ED 17:27
DX: S22.068A Other fracture of T7-T8 thoracic vertebra, initial encounter for closed fracture (principal); J44.9 Chronic obstructive pulmonary disease, unspecified; I10 Essential (primary) hypertension; F41.9 Anxiety disorder, unspecified; F32.A Depression, unspecified; M19.90 Unspecified osteoarthritis, unspecified site; F17.200 Nicotine dependence, unspecified, uncomplicated; Z88.0 Allergy status to penicillin; Z88.2 Allergy status to sulfonamides; Z91.040 Latex allergy status; Z98.890 Other specified postprocedural states; Z98.51 Tubal ligation status; X50.1XXA Overexertion from prolonged static or awkward postures, initial encounter; Y93.89 Activity, other specified; Y92.89 Other specified places as the place of occurrence of the external cause; Y99.8 Other external cause status

== ENCOUNTER 2024-01-11 19:12 | Emergency (ER) | payer OTHER ==
[~2024-01-11] VITALS: Ht 162.5 cm; Wt 64.9 kg
[~2024-01-11 19:12] MED LIST changes: +PERCOCET 5-3251 EACH PO
[2024-01-11] MEDS ORDERED: METHOCARBAMOL 500 MG TAB PO ONE (19:55)
[2024-01-11] MEDS ORDERED: Ketorolac Tromethamine 30 MG/ML VIAL IM ONE (19:55)
[2024-01-11] MEDS ORDERED: METHOCARBAMOL500 M1 PO (19:56)
[2024-01-11] MEDS ORDERED: NAPROXEN250 MG PO (19:56)
== END 2024-01-11 20:07 | disposition home or self-care (01) ==
LOC: ED 19:12
DX: S29.012A Strain of muscle and tendon of back wall of thorax, initial encounter (principal); F17.200 Nicotine dependence, unspecified, uncomplicated; Z88.2 Allergy status to sulfonamides; Z79.899 Other long term (current) drug therapy; Z88.0 Allergy status to penicillin; Z91.040 Latex allergy status; Z79.82 Long term (current) use of aspirin; Z98.51 Tubal ligation status; X58.XXXA Exposure to other specified factors, initial encounter; Y93.89 Activity, other specified; Y92.89 Other specified places as the place of occurrence of the external cause; Y99.8 Other external cause status

== ENCOUNTER 2024-02-27 14:51 | Inpatient (IN) | payer OTHER ==
[~2024-02-27] VITALS: Ht 162.5 cm; Wt 64.5 kg
[~2024-02-27 14:51] MED LIST changes: +METHOCARBAMOL500 M1 PO; +NAPROXEN250 MG PO
[2024-02-27 15:00] VITALS: BP 111/75
[2024-02-27 15:47] LABS: BASO % 0.2 % (0.0-1.0); EOS % 0.2 % (1.0-4.0); HEMATOCRIT 39.9 % (37.0-47.0); LYMPH # 0.8 10*3/uL (1.3-4.4); LYMPH % 14.3 % (27.0-41.0); MEAN CELL VOLUME 82.6 fl (81.0-99.0); MEAN CORPUSCULAR HGB 25.9 pg (27.0-31.0); MEAN CORPUSCULAR HGB CONC 31.3 g/dl (33.0-37.0); MEAN PLATELET VOLUME 9.9 fl (9.6-12.3); MONO # 0.1 10*3/uL (0.1-1.0); MONO % 2.3 % (3.0-9.0); NEUT # 4.6 10*3/uL (2.3-7.9); NEUT % 82.8 % (47.0-73.0); PLATELET COUNT AUTOMATED 373 10*3/uL (130-400); RED BLOOD COUNT 4.83 10*6/uL (4.10-5.10); RED CELL DISTRI WIDTH 17.1 % (0-14.5); WHITE BLOOD COUNT 5.6 10*3/uL (4.8-10.8)
[2024-02-27] MEDS ORDERED: LORazepam 0.5 MG TAB PO ONE (15:50)
[2024-02-27 16:02] LABS: BUN 6 mg/dl (9-23); CHLORIDE 104 mmol/L (98-107); POTASSIUM 3.9 mmol/L (3.4-5.1)
[2024-02-27] MEDS ORDERED: AZITHROMYCIN 250 ML IV ONE (16:15)
[2024-02-27] MEDS ORDERED: Ceftriaxone Sodium 1 GM/10 ML SYR IV ONE (16:15)
[2024-02-27] MEDS ORDERED: ACETAMINOPHEN 325 MG TAB PO PRN (17:10)
[2024-02-27] MEDS ORDERED: ACETAMINOPHEN 650 MG SUPP R PRN (17:10)
[2024-02-27] MEDS ORDERED: Magnesium Hydroxide 30 ML UDC PO PRN (17:10)
[2024-02-27] MEDS ORDERED: Ondansetron Hydrochloride 4 MG/2 ML VIAL IV PRN (17:10)
[2024-02-27] MEDS ORDERED: BISACODYL 5 MG TAB PO PRN (17:10)
[2024-02-27] MEDS ORDERED: BISACODYL 10 MG SUPP R PRN (17:10)
[2024-02-27] MEDS ORDERED: TEMAZEPAM 15 MG CAP PO PRN (17:10)
[2024-02-27] MEDS ORDERED: Albuterol Sulf/Ipratropium 3 ML VIAL NEB SCH (17:25)
[2024-02-27] MEDS ORDERED: ALENDRONATE SOD70 M1 PO (17:48)
[2024-02-27] MEDS ORDERED: MIXED AMPHETAMI30 MG PO (17:57)
[2024-02-27] MEDS ORDERED: FUROSEMIDE20 M1 PO (17:57)
[2024-02-27] MEDS ORDERED: FAMOTIDINE20 M1 PO (17:58)
[2024-02-27] MEDS ORDERED: DEXTROAMPH SACC10 M1 PO (17:59)
[2024-02-27] MEDS ORDERED: PREDNISONE5 MG PO (18:00)
[2024-02-27] MEDS ORDERED: POTASSIUM CHLO20 ME3 PO (18:02)
[2024-02-27] MEDS ORDERED: BUDESONIDE 0.5 MG AMP NEB SCH (18:05)
[2024-02-27] MEDS ORDERED: SODIUM CHLORIDE 0.9% 1,000 ML IV SCH (19:05)
[2024-02-27 20:00] VITALS: BP 104/58
[2024-02-27] MEDS ORDERED: Doxycycline Hyclate 100 MG in SODIUM CHLORIDE 0.9% 250 ML IV SCH (20:00)
[2024-02-27] MEDS ORDERED: methylPREDNISolone sod succ 40 MG VIAL IV SCH (22:00)
[2024-02-27 22:12] VITALS: BP 104/58
[2024-02-28] VITALS: BP 107/65
[2024-02-28 06:16] LABS: HEMATOCRIT 37.8 % (37.0-47.0); LYMPH # 1.1 10*3/uL (1.3-4.4); LYMPH % 16.3 % (27.0-41.0); MEAN CELL VOLUME 81.8 fl (81.0-99.0); MEAN CORPUSCULAR HGB 25.5 pg (27.0-31.0); MEAN CORPUSCULAR HGB CONC 31.2 g/dl (33.0-37.0); MEAN PLATELET VOLUME 10.4 fl (9.6-12.3); MONO # 0.3 10*3/uL (0.1-1.0); MONO % 3.7 % (3.0-9.0); NEUT # 5.4 10*3/uL (2.3-7.9); NEUT % 79.7 % (47.0-73.0); PLATELET COUNT AUTOMATED 399 10*3/uL (130-400); RED BLOOD COUNT 4.62 10*6/uL (4.10-5.10); WHITE BLOOD COUNT 6.8 10*3/uL (4.8-10.8)
[2024-02-28 06:34] LABS: ALKALINE PHOSPHATASE 88 U/L (46-116); BUN 8 mg/dl (9-23); CHLORIDE 105 mmol/L (98-107); POTASSIUM 3.9 mmol/L (3.4-5.1); SGPT/ALT 17 U/L (5-49)
[2024-02-28 08:00] VITALS: BP 92/51
[2024-02-28] MEDS ORDERED: hydrOXYzine pamoate 25 MG CAP PO PRN (08:20)
[2024-02-28] MEDS ORDERED: REMDESIVIR 200 MG in SODIUM CHLORIDE 0.9% 210 ML IV ONE (09:00)
[2024-02-28] MEDS ORDERED: Dexamethasone Sodium Phospha 4 MG/ML VIAL IV SCH (10:00)
[2024-02-28] MEDS ORDERED: ASPIRIN ENTERIC COATED 81 MG TAB PO SCH (10:00)
[2024-02-28] MEDS ORDERED: Enoxaparin Sodium 40 MG/0.4 ML SYR SC SCH (10:00)
[2024-02-28] MEDS ORDERED: Amphetamine Salt Combination 5 MG TAB PO SCH ×2 (10:00→16:00)
[2024-02-28] MEDS ORDERED: SODIUM CHLORIDE Nasal 44 ml bottle NAS PRN (11:50)
[2024-02-28 12:00] VITALS: BP 103/54
[2024-02-28 16:00] VITALS: BP 122/95
[2024-02-28] MEDS ORDERED: AZITHROMYCIN 250 ML IV SCH (16:00)
[2024-02-28 20:00] VITALS: BP 107/59
[2024-02-29] VITALS: BP 95/55
[2024-02-29] MEDS ORDERED: PREDNISONE5 MG PO (02:41)
[2024-02-29] MEDS ORDERED: FAMOTIDINE20 M1 PO (02:42)
[2024-02-29] MEDS ORDERED: STIOLTO RESPIMAT4 GM INH (02:44)
[2024-02-29] MEDS ORDERED: QVAR REDIHALE10.6 G1 INH (02:45)
[2024-02-29 05:39] LABS: BUN 16 mg/dl (9-23); CHLORIDE 109 mmol/L (98-107); POTASSIUM 3.2 mmol/L (3.4-5.1)
[2024-02-29 06:15] LABS: BASO % 0.1 % (0.0-1.0); EOS % 0.1 % (1.0-4.0); HEMATOCRIT 37.5 % (37.0-47.0); LYMPH # 2.2 10*3/uL (1.3-4.4); LYMPH % 22.9 % (27.0-41.0); MEAN CELL VOLUME 84.1 fl (81.0-99.0); MEAN CORPUSCULAR HGB 25.1 pg (27.0-31.0); MEAN CORPUSCULAR HGB CONC 29.9 g/dl (33.0-37.0); MEAN PLATELET VOLUME 10.2 fl (9.6-12.3); MONO # 0.9 10*3/uL (0.1-1.0); NEUT # 6.6 10*3/uL (2.3-7.9); NEUT % 67.5 % (47.0-73.0); PLATELET COUNT AUTOMATED 397 10*3/uL (130-400); RED BLOOD COUNT 4.46 10*6/uL (4.10-5.10); RED CELL DISTRI WIDTH 17.1 % (0-14.5); WHITE BLOOD COUNT 9.7 10*3/uL (4.8-10.8)
[2024-02-29] MEDS ORDERED: POTASSIUM CHLORIDE 20 MEQ TAB PO ONE (07:35)
[2024-02-29 08:00] VITALS: BP 112/58
[2024-02-29] MEDS ORDERED: MAGNESIUM SULFATE 50 ML IV ONE (08:25)
[2024-02-29] MEDS ORDERED: REMDESIVIR 100 MG in SODIUM CHLORIDE 0.9% 230 ML IV SCH (09:00)
[2024-02-29] MEDS ORDERED: Amphetamine Salt Combination 5 MG TAB PO SCH (10:00)
[2024-02-29] MEDS ORDERED: GUAIFENESIN 600 MG TAB ER PO SCH (10:00)
[2024-02-29 12:00] VITALS: BP 122/77
[2024-02-29 16:00] VITALS: BP 108/65
[2024-02-29] MEDS ORDERED: hydrOXYzine pamoate 25 MG CAP PO PRN (16:27)
[2024-02-29 20:00] VITALS: BP 106/66
[2024-03-01] VITALS: BP 122/70
[2024-03-01 06:22] LABS: BASO % 0.1 % (0.0-1.0); EOS % 0.1 % (1.0-4.0); HEMATOCRIT 39.8 % (37.0-47.0); LYMPH # 1.9 10*3/uL (1.3-4.4); LYMPH % 18.5 % (27.0-41.0); MEAN CORPUSCULAR HGB 25.1 pg (27.0-31.0); MEAN CORPUSCULAR HGB CONC 29.9 g/dl (33.0-37.0); MEAN PLATELET VOLUME 10.2 fl (9.6-12.3); MONO # 0.7 10*3/uL (0.1-1.0); MONO % 6.7 % (3.0-9.0); NEUT # 7.6 10*3/uL (2.3-7.9); NEUT % 74.2 % (47.0-73.0); PLATELET COUNT AUTOMATED 446 10*3/uL (130-400); RED BLOOD COUNT 4.74 10*6/uL (4.10-5.10); RED CELL DISTRI WIDTH 16.7 % (0-14.5); WHITE BLOOD COUNT 10.2 10*3/uL (4.8-10.8)
[2024-03-01 07:15] LABS: BUN 12 mg/dl (9-23); CHLORIDE 108 mmol/L (98-107)
[2024-03-01 07:20] LABS: POTASSIUM 4.2 mmol/L (3.4-5.1)
[2024-03-01 08:00] VITALS: BP 117/71
[2024-03-01 12:00] VITALS: BP 107/65
[2024-03-01] MEDS ORDERED: Nicotine 14 MG PATCH T SCH (13:00)
[2024-03-01 16:00] VITALS: BP 102/67
[2024-03-01] MEDS ORDERED: predniSONE 20 MG TAB PO SCH ×2 (18:00→22:00)
[2024-03-01 20:00] VITALS: BP 92/51
[2024-03-01] MEDS ORDERED: GUAIFENESIN 600 MG TAB ER PO SCH (22:00)
[2024-03-02] VITALS: BP 99/53
[2024-03-02 06:18] LABS: ALKALINE PHOSPHATASE 87 U/L (46-116); BUN 16 mg/dl (9-23); CHLORIDE 106 mmol/L (98-107); LDH 180 U/L (120-246); POTASSIUM 4.8 mmol/L (3.4-5.1); SGPT/ALT 12 U/L (5-49); TOTAL PROTEIN 6.8 gm/dL (6.0-8.0)
[2024-03-02 08:00] VITALS: BP 112/70
[2024-03-02 12:00] VITALS: BP 127/77
[2024-03-02 16:00] VITALS: BP 110/72
[2024-03-02 20:00] VITALS: BP 127/55
[2024-03-03] VITALS: BP 128/58
[2024-03-03 06:46] LABS: ALKALINE PHOSPHATASE 82 U/L (46-116); BUN 18 mg/dl (9-23); CHLORIDE 106 mmol/L (98-107); LDH 158 U/L (120-246); POTASSIUM 4.9 mmol/L (3.4-5.1); SGPT/ALT 10 U/L (5-49); TOTAL PROTEIN 6.6 gm/dL (6.0-8.0)
[2024-03-03 08:30] VITALS: BP 126/66
[2024-03-03] MEDS ORDERED: FAMOTIDINE 20 MG TAB PO SCH (10:40)
[2024-03-03 12:00] VITALS: BP 119/57
[2024-03-03 16:00] VITALS: BP 114/70
[2024-03-03 20:00] VITALS: BP 109/68
[2024-03-04] VITALS: BP 115/74
[2024-03-04 07:47] LABS: ALKALINE PHOSPHATASE 77 U/L (46-116); BUN 21 mg/dl (9-23); CHLORIDE 104 mmol/L (98-107); LDH 178 U/L (120-246); POTASSIUM 4.3 mmol/L (3.4-5.1); SGPT/ALT 9 U/L (5-49); TOTAL PROTEIN 6.4 gm/dL (6.0-8.0)
[2024-03-04 08:00] VITALS: BP 117/78
[2024-03-04 12:00] VITALS: BP 124/74
[2024-03-04 16:00] VITALS: BP 119/57
[2024-03-04 20:00] VITALS: BP 128/54
[2024-03-05] MEDS ORDERED: CALCIUM (TUMS) 500MG PO ONE (00:15)
[2024-03-05] MEDS ORDERED: CALCIUM (TUMS) 500MG PO PRN (03:40)
[2024-03-05 07:19] LABS: ALKALINE PHOSPHATASE 78 U/L (46-116); BUN 20 mg/dl (9-23); CHLORIDE 103 mmol/L (98-107); POTASSIUM 4.9 mmol/L (3.4-5.1); SGPT/ALT 8 U/L (5-49); TOTAL PROTEIN 6.4 gm/dL (6.0-8.0)
[2024-03-05 08:00] VITALS: BP 120/66
[2024-03-05] MEDS ORDERED: MUCUS RELIEF E600 MG PO (11:20)
[2024-03-05] MEDS ORDERED: PREDNISONE10 MG PO (11:20)
[2024-03-05] MEDS ORDERED: FAMOTIDINE20 M1 PO (11:48)
== END 2024-03-05 12:57 | disposition home or self-care (01) | DRG 871 ==
LOC: ED 14:51 → EDHOLD 16:46 → 4E 16:46 → EDHOLD 17:41 → 4E 17:51
PROVIDERS: Internal Medicine Critical Care Medicine; Physician Assistant Medical; Student in an Organized Health Care Education/Training Program; ADMIT Internal Medicine; ATTEND Internal Medicine
PROC: XW033E5 Introduction of Remdesivir Anti-infective into Peripheral Vein, Percutaneous Approach, New Technology Group 5 (ICD-10-PCS; principal; 2024-02-29)
DX: A41.89 Other specified sepsis (principal); J12.82 Pneumonia due to coronavirus disease 2019; J96.21 Acute and chronic respiratory failure with hypoxia; U07.1 COVID-19; J44.1 Chronic obstructive pulmonary disease with (acute) exacerbation; E44.0 Moderate protein-calorie malnutrition; G89.29 Other chronic pain; M54.6 Pain in thoracic spine; R73.9 Hyperglycemia, unspecified; F41.1 Generalized anxiety disorder; J43.1 Panlobular emphysema; F17.210 Nicotine dependence, cigarettes, uncomplicated; Z71.6 Tobacco abuse counseling; Z88.0 Allergy status to penicillin; Z88.2 Allergy status to sulfonamides; Z91.040 Latex allergy status; Z79.899 Other long term (current) drug therapy; Z82.5 Family history of asthma and other chronic lower respiratory diseases; Z79.51 Long term (current) use of inhaled steroids; Z79.1 Long term (current) use of non-steroidal anti-inflammatories (NSAID); Z79.82 Long term (current) use of aspirin; Z68.24 Body mass index [BMI] 24.0-24.9, adult

== ENCOUNTER 2024-06-17 12:36 | Emergency (ER) | payer OTHER ==
[~2024-06-17] VITALS: Ht 162.5 cm; Wt 71.7 kg
[~2024-06-17 12:36] MED LIST changes: +ALENDRONATE SOD70 M1 PO; +DEXTROAMPH SACC10 M1 PO; +FAMOTIDINE20 M1 PO; +FUROSEMIDE20 M1 PO; +MIXED AMPHETAMI30 MG PO; +MUCUS RELIEF E600 MG PO; +POTASSIUM CHLO20 ME3 PO; +PREDNISONE5 MG PO; +QVAR REDIHALE10.6 G1 INH; +STIOLTO RESPIMAT4 GM INH
[2024-06-17] MEDS ORDERED: methylPREDNISolone sod succ 125 MG VIAL IM ONE (12:50)
[2024-06-17] MEDS ORDERED: Albuterol Sulf/Ipratropium 3 ML VIAL NEB ONE (12:50)
[2024-06-17 13:19] LABS: BASO % 0.4 % (0.0-1.0); EOS # 0.2 10*3/uL (0.0-0.4); EOS % 1.8 % (1.0-4.0); HEMATOCRIT 41.7 % (37.0-47.0); MEAN CELL VOLUME 85.1 fl (81.0-99.0); MEAN CORPUSCULAR HGB 26.3 pg (27.0-31.0); MEAN CORPUSCULAR HGB CONC 30.9 g/dl (33.0-37.0); MEAN PLATELET VOLUME 8.7 fl (9.6-12.3); MONO # 0.6 10*3/uL (0.1-1.0); MONO % 5.8 % (3.0-9.0); PLATELET COUNT AUTOMATED 398 10*3/uL (130-400); RED CELL DISTRI WIDTH 17.5 % (0-14.5); WHITE BLOOD COUNT 10.8 10*3/uL (4.8-10.8)
[2024-06-17 13:42] LABS: BUN 13 mg/dl (9-23); CHLORIDE 101 mmol/L (98-107); POTASSIUM 4.1 mmol/L (3.4-5.1)
[2024-06-17] MEDS ORDERED: VIBRAMYCIN100 MG PO (14:03)
[2024-06-17] MEDS ORDERED: PREDNISONE50 MG PO (14:03)
[2024-06-17] MEDS ORDERED: Acetaminophen/Hydrocodone 5 MG/325 MG TABLET PO ONE (14:05)
[2024-06-17] MEDS ORDERED: Doxycycline Hyclate 100 MG CAP PO ONE (14:05)
== END 2024-06-17 14:21 | disposition home or self-care (01) ==
LOC: ED 12:36
PROVIDERS: Nurse Practitioner Family
DX: J98.4 Other disorders of lung (principal); Z20.822 Contact with and (suspected) exposure to COVID-19; J43.9 Emphysema, unspecified; J44.89 Other specified chronic obstructive pulmonary disease; Z88.0 Allergy status to penicillin; Z88.2 Allergy status to sulfonamides; Z91.040 Latex allergy status; Z79.82 Long term (current) use of aspirin; Z79.899 Other long term (current) drug therapy; Z87.891 Personal history of nicotine dependence

== ENCOUNTER → 2024-07-19 | Outpatient (CLI) | payer OTHER | END | disposition home or self-care (01) | LOC: CT 07-13 11:00 | PROVIDERS: ATTEND Internal Medicine Critical Care Medicine | DX: Z12.2 Encounter for screening for malignant neoplasm of respiratory organs (principal); J98.09 Other diseases of bronchus, not elsewhere classified; I25.10 Atherosclerotic heart disease of native coronary artery without angina pectoris; Z87.891 Personal history of nicotine dependence ==

== ENCOUNTER 2024-09-03 16:22 | Emergency (ER) | payer OTHER ==
[~2024-09-03] VITALS: Ht 162.5 cm; Wt 74.8 kg
[2024-09-03] MEDS ORDERED: HYDROCODONE-AC1 EAC1 PO (17:24)
[2024-09-03] MEDS ORDERED: Acetaminophen/Hydrocodone 5 MG/325 MG TABLET PO ONE (17:25)
== END 2024-09-03 18:35 | disposition home or self-care (01) ==
LOC: ED 16:22
DX: G89.29 Other chronic pain (principal); M06.9 Rheumatoid arthritis, unspecified; M19.90 Unspecified osteoarthritis, unspecified site; J44.9 Chronic obstructive pulmonary disease, unspecified; F41.9 Anxiety disorder, unspecified; F32.A Depression, unspecified; F17.200 Nicotine dependence, unspecified, uncomplicated; Z88.0 Allergy status to penicillin; Z88.2 Allergy status to sulfonamides; Z91.040 Latex allergy status; Z79.82 Long term (current) use of aspirin; Z79.899 Other long term (current) drug therapy

== ENCOUNTER 2024-09-10 17:27 | Emergency (ER) | payer OTHER ==
[~2024-09-10] VITALS: Ht 162.5 cm; Wt 72.6 kg
[~2024-09-10 17:27] MED LIST changes: +HYDROCODONE-AC1 EAC1 PO
[2024-09-10] MEDS ORDERED: traMADol Hydrochloride 50 MG TAB PO ONE (17:55)
[2024-09-10] MEDS ORDERED: predniSONE 20 MG TAB PO ONE (17:55)
[2024-09-10] MEDS ORDERED: TRAMADOL HCL50 MG PO (17:58)
[2024-09-10] MEDS ORDERED: PREDNISONE20 M1 PO (17:58)
== END 2024-09-10 18:03 | disposition home or self-care (01) ==
LOC: ED 17:27
DX: M06.9 Rheumatoid arthritis, unspecified (principal); J44.9 Chronic obstructive pulmonary disease, unspecified; F17.200 Nicotine dependence, unspecified, uncomplicated; Z88.0 Allergy status to penicillin; Z88.2 Allergy status to sulfonamides; Z91.040 Latex allergy status; Z79.899 Other long term (current) drug therapy; Z79.82 Long term (current) use of aspirin

== ENCOUNTER 2024-09-16 00:40 | Emergency (ER) | payer OTHER ==
[~2024-09-16] VITALS: Ht 160 cm; Wt 68.0 kg
[2024-09-16] MEDS ORDERED: DEXTROAMPH SACC10 M1 PO (00:55)
[2024-09-16] MEDS ORDERED: BREZTRI AEROS10.7 GM INH (00:55)
[2024-09-16] MEDS ORDERED: HYDROXYZINE HCL25 MG PO (00:56)
[2024-09-16] MEDS ORDERED: RINVOQ ER15 MG PO (00:57)
[2024-09-16] MEDS ORDERED: Doxycycline Hyclate 100 MG CAPSULE PO ONE (01:45)
== END 2024-09-16 02:15 | disposition home or self-care (01) ==
LOC: ED 00:40
DX: L03.211 Cellulitis of face (principal); J44.9 Chronic obstructive pulmonary disease, unspecified; F41.9 Anxiety disorder, unspecified; F32.A Depression, unspecified; J45.909 Unspecified asthma, uncomplicated; M19.90 Unspecified osteoarthritis, unspecified site; F17.200 Nicotine dependence, unspecified, uncomplicated; Z88.0 Allergy status to penicillin; Z88.2 Allergy status to sulfonamides; Z91.040 Latex allergy status; Z98.51 Tubal ligation status; Z98.890 Other specified postprocedural states

== ENCOUNTER → 2024-09-18 | Outpatient (CLI) | payer OTHER ==
[~2024-09-18] MED LIST changes: +BREZTRI AEROS10.7 GM INH; +HYDROXYZINE HCL25 MG PO; +RINVOQ ER15 MG PO
== END | disposition home or self-care (01) ==
LOC: WOUNDCARE 10:32
PROVIDERS: ATTEND Nurse Practitioner Family
DX: H00.036 Abscess of eyelid left eye, unspecified eyelid (principal); L03.211 Cellulitis of face; R60.0 Localized edema; L53.9 Erythematous condition, unspecified; J43.9 Emphysema, unspecified; J45.909 Unspecified asthma, uncomplicated; F41.9 Anxiety disorder, unspecified; Z98.51 Tubal ligation status; Z98.890 Other specified postprocedural states; F17.210 Nicotine dependence, cigarettes, uncomplicated; Z79.899 Other long term (current) drug therapy

== ENCOUNTER → 2024-09-20 | Outpatient (CLI) | payer OTHER | END | disposition home or self-care (01) | LOC: WOUNDCARE 09:09 | PROVIDERS: ATTEND Nurse Practitioner Family | DX: L03.211 Cellulitis of face (principal); L53.9 Erythematous condition, unspecified; R60.0 Localized edema; J43.9 Emphysema, unspecified; F41.9 Anxiety disorder, unspecified; F17.210 Nicotine dependence, cigarettes, uncomplicated; Z98.890 Other specified postprocedural states; Z98.51 Tubal ligation status; Z79.899 Other long term (current) drug therapy ==

== ENCOUNTER → 2024-09-26 | Outpatient (CLI) | payer OTHER | END | disposition home or self-care (01) | LOC: WOUNDCARE 02:39 | PROVIDERS: ATTEND Nurse Practitioner Family | DX: L03.211 Cellulitis of face (principal); H00.036 Abscess of eyelid left eye, unspecified eyelid; R60.0 Localized edema; L53.9 Erythematous condition, unspecified; J43.9 Emphysema, unspecified; J45.909 Unspecified asthma, uncomplicated; F41.9 Anxiety disorder, unspecified; F17.210 Nicotine dependence, cigarettes, uncomplicated; Z98.51 Tubal ligation status; Z98.890 Other specified postprocedural states; Z79.899 Other long term (current) drug therapy ==

== ENCOUNTER 2024-11-08 23:53 | Emergency (ER) | payer OTHER ==
[~2024-11-08] VITALS: Ht 162.5 cm; Wt 74.8 kg
[2024-11-09] MEDS ORDERED: MORPHINE Sulfate 2 MG/ML SYR IM ONE (00:15)
[2024-11-09] MEDS ORDERED: Ondansetron Hydrochloride 4 MG TAB PO ONE (00:15)
[2024-11-09] MEDS ORDERED: Ketorolac Tromethamine 30 MG/ML VIAL IM ONE (00:15)
[2024-11-09] MEDS ORDERED: traMADol Hydrochloride 50 MG TAB PO SCH (06:00)
== END 2024-11-09 00:29 | disposition home or self-care (01) ==
LOC: ED 23:53
DX: M16.10 Unilateral primary osteoarthritis, unspecified hip (principal); M54.42 Lumbago with sciatica, left side; Z88.0 Allergy status to penicillin; Z88.2 Allergy status to sulfonamides; Z91.040 Latex allergy status; Z79.899 Other long term (current) drug therapy; Z87.891 Personal history of nicotine dependence; Z79.82 Long term (current) use of aspirin

== ENCOUNTER 2025-03-06 23:05 | Emergency (ER) | payer OTHER ==
[2025-03-06] MEDS ORDERED: Acetaminophen/Hydrocodone ES 7.5/325 tablet PO ONE (23:25)
[2025-03-06] MEDS ORDERED: Ondansetron Hydrochloride 4 MG TAB SL ONE (23:25)
== END 2025-03-06 23:26 | disposition home or self-care (01) ==
LOC: ED 23:05
DX: G89.29 Other chronic pain (principal); M54.9 Dorsalgia, unspecified; M79.602 Pain in left arm; F17.200 Nicotine dependence, unspecified, uncomplicated; Z88.0 Allergy status to penicillin; Z88.2 Allergy status to sulfonamides; Z91.040 Latex allergy status; Z79.899 Other long term (current) drug therapy; Z79.82 Long term (current) use of aspirin

== ENCOUNTER 2025-03-10 00:01 | Emergency (ER) | payer OTHER | END 2025-03-10 00:50 | disposition home or self-care (01) | LOC: ED 00:01 | DX: G89.29 Other chronic pain (principal); M06.9 Rheumatoid arthritis, unspecified; F41.9 Anxiety disorder, unspecified; J44.9 Chronic obstructive pulmonary disease, unspecified; F32.A Depression, unspecified; F17.200 Nicotine dependence, unspecified, uncomplicated; Z86.16 Personal history of COVID-19; Z88.0 Allergy status to penicillin; Z88.2 Allergy status to sulfonamides; Z88.5 Allergy status to narcotic agent; Z88.8 Allergy status to other drugs, medicaments and biological substances; Z91.040 Latex allergy status ==

== ENCOUNTER 2025-04-01 17:53 | Emergency (ER) | payer OTHER ==
[~2025-04-01] VITALS: Ht 162.5 cm; Wt 73.5 kg
[2025-04-01] MEDS ORDERED: Albuterol Sulf/Ipratropium 3 ML VIAL NEB ONE ×2 (18:15→18:45)
[2025-04-01] MEDS ORDERED: Metoclopramide Hydrochloride 10 MG/2 ML VIAL IV ONE (18:15)
[2025-04-01] MEDS ORDERED: diphenhydrAMINE hydrochloride 50 MG/ML VIAL IV ONE (18:15)
[2025-04-01 18:28] LABS: BASO # 0.1 10*3/uL (0.0-0.1); BASO % 0.4 % (0.0-1.0); EOS # 0.4 10*3/uL (0.0-0.4); EOS % 2.7 % (1.0-4.0); MEAN CELL VOLUME 84.8 fl (81.0-99.0); MEAN CORPUSCULAR HGB 25.9 pg (27.0-31.0); MEAN PLATELET VOLUME 9.7 fl (9.6-12.3); MONO # 1.0 10*3/uL (0.1-1.0); MONO % 7.5 % (3.0-9.0); NEUT # 8.3 10*3/uL (2.3-7.9); NEUT % 61.5 % (47.0-73.0); NUCLEATED RED BLOOD CELL 0.0 % (0.0-0.0); NUCLEATED RED BLOOD CELL 0.0 10*3/uL (0.0-0.0); PLATELET COUNT AUTOMATED 372 10*3/uL (130-400); RED CELL DISTRI WIDTH 17.2 % (0-14.5)
[2025-04-01 18:49] LABS: BUN 13 mg/dl (9-23); SGPT/ALT 13 U/L (5-49)
[2025-04-01] MEDS ORDERED: Metoclopramide Hydrochloride 10 MG/2 ML VIAL ONE (19:04)
[2025-04-01] MEDS ORDERED: diphenhydrAMINE hydrochloride 50 MG/ML VIAL ONE (19:04)
== END 2025-04-01 21:31 | disposition home or self-care (01) ==
LOC: ED 17:53
PROVIDERS: Emergency Medicine
DX: K21.9 Gastro-esophageal reflux disease without esophagitis (principal); D72.829 Elevated white blood cell count, unspecified; J44.9 Chronic obstructive pulmonary disease, unspecified; F17.200 Nicotine dependence, unspecified, uncomplicated; Z88.0 Allergy status to penicillin; Z88.2 Allergy status to sulfonamides; Z88.6 Allergy status to analgesic agent; Z91.040 Latex allergy status; Z79.899 Other long term (current) drug therapy; Z79.82 Long term (current) use of aspirin; Z20.822 Contact with and (suspected) exposure to COVID-19